=== PATIENT | male | born 1950 | race Two or more races ===

== ENCOUNTER 2018-09-12 10:36 | Inpatient (IN) | payer MEDICARE, OTHER ==
[~2018-09-12] VITALS: Ht 170.2 cm; Wt 45.4 kg
[~2018-09-12 10:36] MED LIST: BACLOFEN10 MG ORAL; CATAPRES0.1 MG ORAL; CEFAZOLIN2 GM/50 ML IV; CLARITIN10 M2 ORAL; CLONIDINE HCL0.1 MG PO; COLACE100 MG ORAL; COLAZAL750 MG ORAL; CRANBERRY450 M4 PO; DIURIL25 MG ORAL; DOCUSATE SODIU100 MG ORAL; FERROUS SULFAT325 MG ORAL; FLORANEX TABLE1 EAC1 PO; GLUCOPHAGE1000 MG ORAL; HEPARIN SO5000 UNIT2 SUBQ; HEPARIN2000 UNIT/ IV; LISINOPRIL20 MG ORAL; MAALOX ADVANCE770 ML PO; METFORMIN HCL500 M1 ORAL; METFORMIN HCL5000 GM MC; METFORMIN HCL850 M1 ORAL; NORCO 5-325 TA1 EAC1 ORAL; SENNA8.6 M3 PO; TERAZOSIN HCL1 MG ORAL; TRAMADOL HCL50 MG ORAL; TYLENOL EXTRA500 MG ORAL; VERAPAMIL ER240 M2 PO
--- NOTE | 2018-09-12 10:48 | NUR ---
ED Nurse Note: Pt brought in by ambulance from [facility] due to decreased appetite x 2 days. Pt is sluggish. Noted 2 wounds on right buttocks with redness surrounding it. Also noted foul odor and some draiange surrounding suprapubic catheter. Pt is AAO x2, non ambulatory with bilateral lower leg contractures.
[2018-09-12] MEDS ORDERED: LISINOPRIL10 MG ORAL (11:10)
[2018-09-12] MEDS ORDERED: THERA-M TABLET1 EACH PO (11:10)
[2018-09-12] MEDS ORDERED: ATORVASTATIN CA10 MG ORAL (11:10)
[2018-09-12] MEDS ORDERED: FLEET ENEMA133 ML RECTAL (11:10)
[2018-09-12] MEDS ORDERED: DULCOLAX10 MG RC (11:10)
--- NOTE | 2018-09-12 11:13 | Emergency Room Report ---
History of Present Illness General Chief Complaint: Altered Level of Consciousness Source: Patient, Medical Record, EMS Present Illness HPI Patient presents with lack of appetite and not eating. 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 He has a Rai catheter. He states he has left lower quadrant abdominal pain. He moved his bowels yesterday. He states he is not hungry at this time. The pain is rated 8/10 nonradiating. He states he is thirsty. BPH and urinary retention with chronic rai. No fevers, cough, NV, chest pain, cough, headache, joint pain. Chronic weakness and bed bound. Mytonic muscular dystrophy. Allergies: Coded Allergies: PEANUT (Verified Allergy, Unknown, 09/12/18) Patient History Past Medical History: see triage record Social History: Denies: smoking Social [facility] Nursing Documentation: PMH: Agreed; PSxH: Agreed Nursing Documentation-PMH Hx Cardiac Problems: No - BPH Hx Hypertension: Yes Hx Pacemaker: No - bph,urinary retention, gerd, Hx COPD: Yes Hx Diabetes: Yes Hx Cancer: No Hx Gastrointestinal Problems: Yes - GERD, Anemia Hx Neurological Problems: No Review of Systems All Other Systems: negative except mentioned in HPI Physical Exam Vital Signs Date Time Temp Pulse Resp B/P (MAP) Pulse Ox O2 Delivery O2 Flow Rate FiO2 09/12/18 10:38 97.7 89 16 126/77 91 Room Air Sp02 EP Interpretation: reviewed, abnormal - interpreted as low by me General Appearance: no apparent distress, thin, Chronically Ill Eyes: bilateral eye other - Arcus bilaterally ENT: dry mucus membranes Neck: supple Cardiovascular #1: regular rate, rhythm, no edema Cardiovascular #2: 2+ radial (R) Gastrointestinal: soft, no guarding, no rebound, tenderness - LLQ , decreased bowel sounds, scaphoid Genitourinary: no CVA tenderness, other - rai Musculoskeletal: other - atrophy bilateral legs with weakness and some contractures Neurologic: responsive, sensory intact, motor weakness - LE, oriented - X2 Psychiatric: depressed affect Reflexes: 1+ knee (R), 1+ knee (L) Skin: other - poor turgor, bilateral sacral decubiti - Stage 3 Medical Decision Making Diagnostic Impression: Primary Impression: UTI (urinary tract infection) Qualified Codes: T83.511A - Infection and inflammatory reaction due to indwelling urethral catheter, initial encounter; N39.0 - Urinary tract infection , site not specified Additional Impressions: Failure to thrive Qualified Codes: R62.7 - Adult failure to thrive Muscular dystrophy Fecal impaction Renal failure (ARF), acute on chronic Qualified Codes: N17.9 - Acute kidney failure, unspecified; N18.3 - Chronic kidney disease, stage 3 (moderate) ER Course Patient presents with lower abdominal pain and lack of appetite. Differential includes diverticulitis, impaction, urinary tract infection, renal stone, pyelonephritis amongst others. Evaluation will be with EKG, chest x-ray abdominal film and labs including lactic acid. Patient will receive IV hydration. EKG without injury. CXR no infiltrate. Labs with leukocytosis, ARF, pyuria. Abd with impaction. Antibiotics begun. Discussed with Dr. Oakley. Admit med. Dr. Oakley here and examined patient. Laboratory Tests Test 09/12/18 11:00 09/12/18 11:05 White Blood Count 15.1 K/UL (4.8-10.8) H Red Blood Count 4.38 M/UL (4.70-6.10) L Hemoglobin 12.4 G/DL (14.2-18.0) L Hematocrit 38.2 % (42.0-52.0) L Mean Corpuscular Volume 87 FL (80-99) Mean Corpuscular Hemoglobin 28.2 PG (27.0-31.0) Mean Corpuscular Hemoglobin Concent 32.4 G/DL (32.0-36.0) Red Cell Distribution Width 14.8 % (11.6-14.8) Platelet Count 637 K/UL (150-450) H Mean Platelet Volume 4.9 FL (6.5-10.1) L Neutrophils (%) (Auto) % (45.0-75.0) Lymphocytes (%) (Auto) % (20.0-45.0) Monocytes (%) (Auto) % (1.0-10.0) Eosinophils (%) (Auto) % (0.0-3.0) Basophils (%) (Auto) % (0.0-2.0) Differential Total Cells Counted 100 Neutrophils % (Manual) 85 % (45-75) H Lymphocytes % (Manual) 13 % (20-45) L Monocytes % (Manual) 2 % (1-10) Eosinophils % (Manual) 0 % (0-3) Basophils % (Manual) 0 % (0-2) Band Neutrophils 0 % (0-8) Platelet Estimate Increased H Platelet Morphology Normal Hypochromasia 1+ Anisocytosis 1+ Prothrombin Time 11.1 SEC (9.30-11.50) Prothrombin Time INR 1.1 (0.9-1.1) PTT 27 SEC (23-33) Sodium Level 144 MMOL/L (136-145) Potassium Level 5.1 MMOL/L (3.5-5.1) Chloride Level 106 MMOL/L (98-107) Carbon Dioxide Level 16 MMOL/L (21-32) L Anion Gap 22 mmol/L (5-15) H Blood Urea Nitrogen 134 mg/dL (7-18) H Creatinine 3.4 MG/DL (0.55-1.30) H Estimate Glomerular Filtration Rate 18.1 mL/min (>60) Glucose Level 117 MG/DL (74-106) H Lactic Acid Level 1.10 mmol/L (0.4-2.0) Calcium Level 10.3 MG/DL (8.5-10.1) H Phosphorus Level 5.9 MG/DL (2.5-4.9) H Magnesium Level 2.7 MG/DL (1.8-2.4) H Total Bilirubin 0.3 MG/DL (0.2-1.0) Aspartate Amino Transferase (AST) 27 U/L (15-37) Alanine Aminotransferase (ALT) 45 U/L (12-78) Alkaline Phosphatase 88 U/L (46-116) Total Creatine Kinase 356 U/L (26-308) H Troponin I 0.004 ng/mL (0.000-0.056) Pro-B-Type Natriuretic Peptide 244 pg/mL (0-125) H Total Protein 9.3 G/DL (6.4-8.2) H Albumin 4.3 G/DL (3.4-5.0) Globulin 5.0 g/dL Albumin/Globulin Ratio 0.9 (1.0-2.7) L Lipase 141 U/L (73-393) Urine Color Pale yellow Urine Appearance Cloudy Urine pH 5 (4.5-8.0) Urine Specific Center 1.020 (1.005-1.035) Urine Protein 3+ (NEGATIVE) H Urine Glucose (UA) Negative (NEGATIVE) Urine Ketones 1+ (NEGATIVE) H Urine Blood 5+ (NEGATIVE) H Urine Nitrite Positive (NEGATIVE) H Urine Bilirubin Negative (NEGATIVE) Urine Urobilinogen Normal MG/DL (0.0-1.0) Urine Leukocyte Esterase 3+ (NEGATIVE) H Urine RBC 30-40 /HPF (0 - 0) H Urine WBC 60-80 /HPF (0 - 0) H Urine Squamous Epithelial Cells Occasional /LPF Urine Bacteria Many /HPF (NONE) H EKG Diagnostic Results Rate: normal Rhythm: NSR ST Segments: no acute changes - RBBB Rhythm Strip Diag. Results EP Interpretation: yes Rhythm: NSR, no PVC's, no ectopy Chest X-Ray Diagnostic Results Chest X-Ray Diagnostic Results : Chest X-Ray Ordered: Yes # of Views/Limited/Complete: 1 View Indication: Other EP Interpretation: Yes Interpretation: no consolidation, no effusion, no pneumothorax Impression: No acute disease Electronically Signed by: Electronically signed by Dane Patel MD Other X-Ray Diagnostic Results Other X-Ray Diagnostic Results : X-Ray ordered: abd # of Views/Limited Vs Complete: 2 View Indication: Pain EP Interpretation: Yes Interpretation: nonspecific bowel gas, no sbo, other - impaction Impression: Other Electronically Signed by: Electronically signed by Dane Patel MD Last Vital Signs Date Time Temp Pulse Resp B/P (MAP) Pulse Ox O2 Delivery O2 Flow Rate FiO2 09/12/18 20:00 99.4 92 17 137/79 (98) 96 09/12/18 16:31 Room Air Status: improved Disposition: ADMITTED INPATIENT Condition: Serious Dane Patel MD Sep 12, 2018 11:13
--- NOTE | 2018-09-12 11:16 | NUR ---
ED Nurse Note: Blood and urine sent.
[2018-09-12 11:18] LABS: HEMATOCRIT 38.2 % (42.0-52.0); HEMOGLOBIN 12.4 G/DL (14.2-18.0); MEAN CORPUSCULAR VOLUME 87 FL (80-99); PLATELET COUNT 637 K/UL (150-450); RED BLOOD COUNT 4.38 M/UL (4.70-6.10); RED CELL DISTRIBUTION WIDTH 14.8 % (11.6-14.8); WHITE BLOOD COUNT 15.1 K/UL (4.8-10.8)
[2018-09-12 11:25] LABS: APPEARANCE,URINE CLOUDY; BILIRUBIN, URINE NEGATIVE (NEGATIVE); COLOR,URINE PALE YELLOW; GLUCOSE, URINE (UA) NEGATIVE (NEGATIVE); KETONES,URINE 1+ (NEGATIVE); LEUKOCYTE ESTERASE ,URINE 3+ (NEGATIVE); NITRITE,URINE POSITIVE (NEGATIVE); PH,URINE 5 (4.5-8.0); PROTEIN,URINE 3+ (NEGATIVE); UROBILINOGEN,URINE NORMAL MG/DL (0.0-1.0)
[2018-09-12 11:31] VITALS: BP 135/71
[2018-09-12 11:36] LABS: INR 1.1 (0.9-1.1)
[2018-09-12 11:38] LABS: ANION GAP 22 mmol/L (5-15); BLOOD UREA NITROGEN 134 mg/dL (7-18); CALCIUM 10.3 MG/DL (8.5-10.1); CARBON DIOXIDE 16 MMOL/L (21-32); CHLORIDE 106 MMOL/L (98-107); CREATININE 3.4 MG/DL (0.55-1.30); POTASSIUM 5.1 MMOL/L (3.5-5.1); SODIUM 144 MMOL/L (136-145)
[2018-09-12 11:47] LABS: ALANINE AMINOTRANSFERASE 45 U/L (12-78); ALBUMIN 4.3 G/DL (3.4-5.0); ALBUMIN/GLOBULIN RATIO 0.9 (1.0-2.7); ALKALINE PHOSPHATASE 88 U/L (46-116); ASPARTATE AMINO TRANSFERASE 27 U/L (15-37); BILIRUBIN,TOTAL 0.3 MG/DL (0.2-1.0); CREATINE KINASE 356 U/L (26-308); PHOSPHORUS 5.9 MG/DL (2.5-4.9)
[2018-09-12] MEDS ORDERED: cefTRIAXone 1 GM in NS 55 ML IVPB ONE (12:15)
--- NOTE | 2018-09-12 12:42 | Diagnostic Imaging Report ---
EXAM: XR Chest, 1 View CLINICAL HISTORY: ALOC TECHNIQUE: Frontal view of the chest. COMPARISON: No relevant prior studies available. FINDINGS: Lungs: No consolidation. Pleural space: Unremarkable. No pneumothorax. Heart: Unremarkable. No cardiomegaly. Mediastinum: Unremarkable. Bones/joints: No acute fracture. IMPRESSION: No acute cardiopulmonary disease.
--- NOTE | 2018-09-12 12:59 | Diagnostic Imaging Report ---
EXAM: XR Abdomen, 1 View CLINICAL HISTORY: ABD PAIN TECHNIQUE: Frontal supine view of the abdomen/pelvis. COMPARISON: No relevant prior studies available. FINDINGS: Gastrointestinal tract: Paucity of bowel gas. Large amount of stool throughout the colon. Bones/joints: Degenerative changes of the right hip IMPRESSION: Paucity of bowel gas. Large amount of stool throughout the colon.
--- NOTE | 2018-09-12 14:10 | NUR ---
ED Nurse Note: Tried to give report to Med surg unit but receiving RN unable to receive report at this time Will call again.
--- NOTE | 2018-09-12 14:42 | NUR ---
ED Nurse Note: Report given to Marisela COY of Med surg unit.
[2018-09-12 14:43] VITALS: BP 142/94
--- NOTE | 2018-09-12 14:50 | NUR ---
ED Nurse Note: Pt transferred to Med Surg unit via jeffrey assisted by CEZAR Alcaraz. All belongings sent.
[2018-09-12 15:30] VITALS: BP 115/85
[2018-09-12] MEDS ORDERED: traMADol 50mg tab ORAL PRN (16:00)
[2018-09-12] MEDS ORDERED: Acetaminophen 500mg (ES) tab ORAL PRN (16:00)
--- NOTE | 2018-09-12 16:00 | Consultation ---
Consult Note Consult Note asked to eval for renal failure Chief Complaint: Altered Level of Consciousness HPI Patient presents with lack of appetite and not eating. 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 He has a Webster catheter. He states he has left lower quadrant abdominal pain. He moved his bowels yesterday. He states he is not hungry at this time. The pain is rated 8/10 nonradiating. Mytonic muscular dystrophy. Coded Allergies: PEANUT (Verified Allergy, Unknown, 09/12/18) - BPH - HTN - bph,urinary retention, gerd, -COPD: Yes -Diabetes: Yes -Gastrointestinal Problems: Yes - GERD, Anemia . Assessment/Plan Acute Renal failure On DIURETICS_ METFORMIN _ ZESTRIL ? CKD underlying Dehydration Supra pubic cath UTI Hydrate monitor renal parameters Antibiotics Avoid Nephrotoxics Per orders Jesse Moya MD Sep 12, 2018 16:00
[2018-09-12] MEDS ORDERED: HydrALAZINE 25mg tab ORAL PRN (16:15)
[2018-09-12] MEDS ORDERED: CefTAZidime 1 GM in D5W 55 ML IV ONE (17:00)
[2018-09-12] MEDS ORDERED: Vancomycin 1 GM in D5W 275 ML IVPB ONE (17:30)
[2018-09-12] MEDS: Docusate 100mg cap ORAL SCH (18:08)
[2018-09-12] MEDS: Lactulose 20gm/30ml UDC ORAL SCH ×2 (18:08→20:27)
--- NOTE | 2018-09-12 18:46 | NUR ---
NURSE NOTES: Received pt from ZBIGNIEW Dolan at 1500. pt is alert and orient x4. pt is in RA . No SOB or acute respiratory distress noted. pt has 4 wounds on R buttock, took picture and treatment done. pt has contracture bilateral lower extremities. pt has suprapubic cath in place is running well. Urin is cloudy and cath has drainage. pt will be NPO from mid night due to ABD . pt has intact iv access LAC 20g is running well. Dr OLMEDO and Dr OROZCO are aware about pt's condition. all orders noted and carried out. All needs attended, bed is locked and is in the lowest position. call light within easy reach. will continue to monitor.
--- NOTE | 2018-09-12 19:39 | NUR ---
HAND-OFF: Report given to ZBIGNIEW WALKER.
[2018-09-12 20:00] VITALS: BP 137/79
[2018-09-12] MEDS: Heparin 5000 units/ml inj SUBQ SCH (20:28)
[2018-09-13] VITALS: BP 130/80
--- NOTE | 2018-09-13 03:15 | History and Physical Report ---
DATE OF ADMISSION: 09/12/2018 NOTE: POOR AUDIO This is one of several admissions to [facility] of this 68-year-old patient because of intractable abdominal pain, intestinal obstruction, and interstitial cystitis. HISTORY OF PRESENT ILLNESS: The patient is a resident of an extended care facility where he has been in relatively stable condition over the last two months. Two months ago he was admitted for a similar condition in this hospital mainly because of lower abdominal pain. The patient explained that the reason for his abdominal pain is that because he took too many Davis. The patient needed to buy Davis to be used over the last month. In the last 24 hours, he took more than 10 Davis 5/325. PAST MEDICAL HISTORY: Denied any surgical . Medically, he has intermittent abdominal pain. He is on , which lasts several weeks . This pain is not associated with fever, nausea, vomiting, or diarrhea. . Other past medical history, for the last 9 years. FAMILY HISTORY: Father at age of 61 from an acute [place]. Mother at the age of 82 with acute myocardial infarction as well. He has 1 sister in good health. He has 1 brother who is in the hospital for . The patient who is sick as well. He has 1 daughter in good health. SOCIAL HISTORY: He is . He was born in [place]. He . Prior to the appearance of his , he worked for the [employer]. HABITS: The patient discontinued smoking in 1963. He discontinued drinking years ago and he denies the use of illicit drugs. REVIEW OF SYSTEMS: CARDIOVASCULAR: The patient denied any chest pain, shortness of breath, palpitations, or dizziness. PULMONARY: The patient denied any cough, wheezing, or expectoration. GASTROINTESTINAL: His appetite is moderate. His weight is stable. He has no dysphagia or dyspepsia. No bowel movement disorder. GENITOURINARY: The patient denies any dysuria. movement disorder in the last 48 hours. The patient denies any dysuria, frequency, incontinence, and nocturia. MUSCULOSKELETAL: The patient denies any pain, swelling, stiffness, cold extremities, photosensitivity, dry eyes, although the patient admits to given explanation that joint pain or lower back pain. RECTAL: Pelvic pain. 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 PHYSICAL EXAMINATION: VITAL SIGNS: His blood pressure is 142/84, his pulse is 76, respirations are 18, and temperature 97.9. HEENT: Eyes were normal. Pupils were round, equal, and reactive to light. Sclerae was white. Conjunctiva was pink. Extraocular movements are normal. Temporal arteries were palpable bilaterally. There was some bilateral temporal wasting. Visual montez to confrontation was normal. Neglect sign was negative. ENT, mucous membranes were not dehydrated. Auditory canals were clear and tympanic membranes could not be visualized. Nasal cavity was not congested. Nasal septum was intact. Soft palate was free of ulcerations. Pharynx was clear. No tonsillar hypertrophy. Uvula cameron to phonation. Tongue was moist, midline, and normally papillated. NECK: Supple. There was no goiter. No mass. No lymphadenopathy. There was no JVD. No bruits. Carotid upstroke was 2+. LUNGS: Clear. HEART: PMI was at the fifth left intercostal space in midclavicular line. There was normal S1 and normal S2. There was no murmur. No arrhythmia. No S3. No S4. No pericardial rub. ABDOMEN: Soft. Nontender without organomegaly. There were no masses palpable. Normal bowel sounds without bruits. There was no guarding. No rebound tenderness. No ascites. No hernia. No CVA tenderness. Liver span was 8 cm, smooth and nontender. EXTREMITIES: No cyanosis, no clubbing, and no edema. Extremities were warm. NEUROLOGICAL: Reflexes of biceps, triceps, and brachioradialis were symmetric and equal. Patellar retinaculum was present. Plantars were in flexion. Cranial nerves from II through XII were symmetric and equal. Gait is within normal limits. Sltoph-fc-[id number] and rapid alternating movements and Romberg sign were not performed by the patient. There was no tremor. No nystagmus. No extrapyramidal rigidity. Sensory exam to pinprick, cotton touch, and to position are grossly normal. Motor strength was 5/5 against resistance in upper extremity and declined by the patient in the lower extremity. LABORATORY DATA: EKG showed no acute cardiopulmonary disease. His KUB shows large amount of stool throughout the colon. His hemoglobin is 12.4, hematocrit 38.2 with MCV of 87, WBC of 15.1, and platelets is 637,000. His BUN is 134 and creatinine is 3.4. Sodium is 144, potassium 5.1, chloride 106, and CO2 is 16. Calcium was 10.3 and total protein 5.9. Albumin is . IMPRESSION: The patient has severe abdominal pain, not exactly explained by the intestinal impaction. The patient has chronic renal failure. Nephrology consult was called to assist in the management of this case. CT scan of the abdomen and pelvis without contrast will be requested and a compressive treatment for his intestinal impaction will be requested. Repeat laboratory tests will be done in the morning. Oni Oakley M.D. DR: MAR JOB#: [id number] CC:
[2018-09-13 04:00] VITALS: BP 133/78
[2018-09-13 07:32] LABS: HEMATOCRIT 37.1 % (42.0-52.0); HEMOGLOBIN 11.8 G/DL (14.2-18.0); MEAN CORPUSCULAR VOLUME 87 FL (80-99); PLATELET COUNT 613 K/UL (150-450); RED BLOOD COUNT 4.26 M/UL (4.70-6.10); RED CELL DISTRIBUTION WIDTH 14.7 % (11.6-14.8); WHITE BLOOD COUNT 18.1 K/UL (4.8-10.8)
--- NOTE | 2018-09-13 07:37 | NUR ---
HAND-OFF: Report given to ZBIGNIEW Freeman.
[2018-09-13 07:38] LABS: ALANINE AMINOTRANSFERASE 70 U/L (12-78); ALBUMIN 4.2 G/DL (3.4-5.0); ALBUMIN/GLOBULIN RATIO 0.9 (1.0-2.7); ALKALINE PHOSPHATASE 90 U/L (46-116); ANION GAP 17 mmol/L (5-15); ASPARTATE AMINO TRANSFERASE 60 U/L (15-37); BILIRUBIN,TOTAL 0.4 MG/DL (0.2-1.0); BLOOD UREA NITROGEN 104 mg/dL (7-18); CARBON DIOXIDE 20 MMOL/L (21-32); CHLORIDE 112 MMOL/L (98-107); CHOLESTEROL 151 MG/DL (< 200); CREATININE 1.9 MG/DL (0.55-1.30); HDL CHOLESTEROL 50 MG/DL (40-60); POTASSIUM 3.7 MMOL/L (3.5-5.1); SODIUM 149 MMOL/L (136-145); TRIGLYCERIDES 107 MG/DL (30-150)
--- NOTE | 2018-09-13 07:47 | NUR ---
NURSE NOTES: received pt in NAD, in bed awake, NPO after midnight for abdominal US. Received IVF through LFA, no sign of infiltration noted. Bed is locked at the lowest position possible, call light within easy reach, siderails up x3. Webster catheter in place, anchor securing F/C tube in place. Will continue to monitor patient and follow up with the POC.
[2018-09-13 07:55] LABS: CREATINE KINASE 580 U/L (26-308); GAMMA GLUTAMYL TRANSPEPTIDASE 56 U/L (5-85); PHOSPHORUS 3.7 MG/DL (2.5-4.9)
[2018-09-13 08:00] VITALS: BP 153/82
[2018-09-13] MEDS: Heparin 5000 units/ml inj SUBQ SCH ×2 (08:35→20:39)
[2018-09-13] MEDS: Lactulose 20gm/30ml UDC ORAL SCH (09:00)
[2018-09-13] MEDS: Docusate 100mg cap ORAL SCH ×3 (09:00→18:00)
[2018-09-13] MEDS ORDERED: Cefepime HCl 1 GM in D5W 55 ML IVPB ONE (11:30)
--- NOTE | 2018-09-13 11:30 | NUR ---
NURSE NOTES: Abdominal US won't be able to be done today, as per US department. Resumed diet for pt, will endorse to NOC nurse to be NPO after MN tonight.
[2018-09-13 12:00] VITALS: BP 131/78
--- NOTE | 2018-09-13 13:17 | NUR ---
RD ASSESSMENT & RECOMMENDATIONS SEE CARE ACTIVITY FOR COMPLETE ASSESSMENT DAILY ESTIMATED NEEDS: Needs based on Underweight, renal, pre-dm/ DM, 46kg 30-35 kcals/kg 5657-4354 total kcals 1-1.5 g protein/kg 46-69 g total protein 25-30 mL/kg 8920-6467 total fluid mLs NUTRITION DIAGNOSIS: 1) Increased kcal and pro needs r/t underweight status as evidenced by pt is 63% of [place] Body Weight w/ generalized wasting. 2) Altered nutrition related lab values r/t renal failure as evidenced by pt adm w/ elev BUN (134) elev creat (3.4), elev K, phos, on adm, now trending to WNL. CURRENT DIET: Renal PO DIET RECOMMENDATIONS: LOW NA DIET (texture as tolerated) ADDITIONAL RECOMMENDATIONS: 1) add Glucerna TID w/ meals (Add NEPRO while on Renal diet) 2) Obtain a CALIBRATED bed scale wt for accurate CBW 3) F/up w/ WC eval 4) Monitor BG/ accuchecks w/ SSI
--- NOTE | 2018-09-13 14:59 | Nephrology Progress Note ---
Assessment/Plan Problem List: (1) Renal failure (ARF), acute on chronic (2) UTI (urinary tract infection) (3) Failure to thrive (4) Severe malnutrition Assessment Acute Renal failure - On DIURETICS_ METFORMIN _ ZESTRIL prior to admission ? CKD underlying Dehydration Supra pubic cath UTI Plan Hydrate - D5W monitor renal parameters Antibiotics Avoid Nephrotoxics Cefepime IV Per orders Subjective ROS Limited/Unobtainable: No Constitutional: Reports: malaise, weakness Objective Objective Last 24 Hour Vital Signs Date Time Temp Pulse Resp B/P (MAP) Pulse Ox O2 Delivery O2 Flow Rate FiO2 09/13/18 12:00 97.6 77 18 131/78 (95) 98 09/13/18 09:00 Room Air 09/13/18 08:32 76 153/82 09/13/18 08:00 97.2 76 17 153/82 (105) 97 09/13/18 04:00 97.8 85 19 133/78 (96) 98 09/13/18 00:00 97.8 106 19 130/80 (97) 98 09/12/18 21:00 Room Air 09/12/18 20:00 99.4 92 17 137/79 (98) 96 09/12/18 17:08 90 115/85 09/12/18 16:31 Room Air 09/12/18 15:30 97.9 90 19 115/85 (95) 97 09/12/18 14:52 97.9 76 18 142/94 99 Room Air Intake and Output 09/12/18 09/13/18 19:00 07:00 Intake Total 2043.708 ml 1613.708 ml Output Total 300 ml 3850 ml Balance 1743.708 ml -2236.292 ml Intake Oral 480 ml IV Total 1843.708 ml 933.708 ml Other 200 ml 200 ml Output Urine Total 300 ml 3850 ml # Voids 1 1 # Bowel Movements 1 Laboratory Tests 09/13/18 06:15: White Blood Count 18.1H, Red Blood Count 4.26L, Hemoglobin 11.8L, Hematocrit 37.1L, Mean Corpuscular Volume 87, Mean Corpuscular Hemoglobin 27.7, Mean Corpuscular Hemoglobin Concent 31.8L, Red Cell Distribution Width 14.7, Platelet Count 613H, Mean Platelet Volume 4.9L, Neutrophils (%) (Auto) , Lymphocytes (%) (Auto) , Monocytes (%) (Auto) , Eosinophils (%) (Auto) , Basophils (%) (Auto) , Differential Total Cells Counted 100, Neutrophils % ( Manual) 84H, Lymphocytes % (Manual) 12L, Monocytes % (Manual) 4, Eosinophils % ( Manual) 0, Basophils % (Manual) 0, Band Neutrophils 0, Platelet Estimate IncreasedH, Platelet Morphology Normal, Anisocytosis 1+, Sodium Level 149H, Potassium Level 3.7, Chloride Level 112H, Carbon Dioxide Level 20L, Anion Gap 17H, Blood Urea Nitrogen 104H, Creatinine 1.9H, Estimat Glomerular Filtration Rate 35.4, Glucose Level 159H, Hemoglobin A1c 6.2H, Uric Acid 13.5H, Calcium Level 10.0, Phosphorus Level 3.7, Magnesium Level 2.3, Total Bilirubin 0.4, Gamma Glutamyl Transpeptidase 56, Aspartate Amino Transf (AST/SGOT) 60H, Alanine Aminotransferase (ALT/SGPT) 70, Alkaline Phosphatase 90, Ammonia 11, Total Creatine Kinase 580H, Troponin I 0.023, Pro-B-Type Natriuretic Peptide 541H, Total Protein 9.0H, Albumin 4.2, Globulin 4.8, Albumin/Globulin Ratio 0.9L , Triglycerides Level 107, Cholesterol Level 151, LDL Cholesterol 81, HDL Cholesterol 50, Cholesterol/HDL Ratio 3.0L, Vitamin B12 Level 1295H, Folate 43.7 , Thyroid Stimulating Hormone (TSH) 0.142L, Random Vancomycin Level 14.0 Height (Feet): 5 Height (Inches): 7.00 Weight (Pounds): 100 General Appearance: no apparent distress, lethargic Cardiovascular: normal rate Abdomen: soft Genitourinary/Rectal: other - supra pubic cath eJsse Moya MD Sep 13, 2018 14:59
[2018-09-13 16:00] VITALS: BP 117/71
--- NOTE | 2018-09-13 17:43 | NUR ---
CASE MANAGEMENT:INITIAL REVIEW 68 YO M SIRI FROM [facility] CC: ALOC PMHx: BPH. URINARY RETENTION. GERD. COPD. DM. SI:UTI. FTT. T 97.7 HR 89 RR 16 B/P 126/77 SATS 91% ON RA WBC 15.1 CO2 16 AGAP 22 BUN 134 CR 3.4 GLU 117 CA 10.3 PHOS 5.9 MG 2.7 TOTAL CK 356 BNP 244 IS: NS BOLUS X2 PATIENT ADMITTED TO MED/SURG 09/12/2018 @ 8289 DCP: PATIENT TO BE DISCHARGED TO SNF ONCE MEDICALLY CLEARED. PLAN OF CARE: WOUND CARE US ABD Addendum: 09/13/18 at 1906 by Fabienne Sánchez CM INTERQUAL MET
--- NOTE | 2018-09-13 19:30 | NUR ---
NURSE NOTES: Received a report from ZBIGNIEW Freeman. Pt is in stable condition. AAOX4. Able to make needs known. No respiratory distress noted. On room air. IV access is patent and intact. Bed in lowest position. Bed alarm is on. Call light within reach. Will continue to monitor.
--- NOTE | 2018-09-13 19:53 | NUR ---
HAND-OFF: Report given to ZBIGNIEW Ventura.
[2018-09-13 20:00] VITALS: BP 135/61
[2018-09-14] VITALS: BP 139/69
[2018-09-14 04:00] VITALS: BP 101/69
[2018-09-14 06:57] LABS: BASOPHILS % (AUTO) 0.9 % (0.0-2.0); EOSINOPHILS % (AUTO) 1.9 % (0.0-3.0); HEMATOCRIT 35.6 % (42.0-52.0); HEMOGLOBIN 11.6 G/DL (14.2-18.0); LYMPHOCYTES % (AUTO) 23.8 % (20.0-45.0); MEAN CORPUSCULAR VOLUME 86 FL (80-99); MONOCYTES % (AUTO) 6.6 % (1.0-10.0); NEUTROPHILS % (AUTO) 66.8 % (45.0-75.0); PLATELET COUNT 553 K/UL (150-450); RED BLOOD COUNT 4.16 M/UL (4.70-6.10); RED CELL DISTRIBUTION WIDTH 14.2 % (11.6-14.8); WHITE BLOOD COUNT 11.9 K/UL (4.8-10.8)
--- NOTE | 2018-09-14 07:10 | NUR ---
HAND-OFF: Report given to ZBIGNIEW Freeman.
[2018-09-14 07:32] LABS: ALANINE AMINOTRANSFERASE 119 U/L (12-78); ALBUMIN 3.8 G/DL (3.4-5.0); ALBUMIN/GLOBULIN RATIO 0.8 (1.0-2.7); ALKALINE PHOSPHATASE 83 U/L (46-116); ANION GAP 14 mmol/L (5-15); ASPARTATE AMINO TRANSFERASE 114 U/L (15-37); BILIRUBIN,TOTAL 0.5 MG/DL (0.2-1.0); BLOOD UREA NITROGEN 58 mg/dL (7-18); CALCIUM 9.5 MG/DL (8.5-10.1); CARBON DIOXIDE 24 MMOL/L (21-32); CHLORIDE 103 MMOL/L (98-107); CREATINE KINASE 755 U/L (26-308); CREATININE 1.2 MG/DL (0.55-1.30); PHOSPHORUS 1.5 MG/DL (2.5-4.9); POTASSIUM 3.4 MMOL/L (3.5-5.1); SODIUM 141 MMOL/L (136-145)
--- NOTE | 2018-09-14 07:40 | NUR ---
NURSE NOTES: received pt in NAD, in bed awake, NPO after midnight for abdominal US and CT abdomen with contrast. Received IVF through L[facility], no sign of infiltration noted. Contacted [employer] to call company for low pressure mattress, spoken to Chaya. Bed is locked at the lowest position possible, call light within easy reach, siderails up x3. Webster catheter in place, anchor securing F/C tube in place. Will continue to monitor patient and follow up with the POC.
[2018-09-14 08:00] VITALS: BP 115/72
--- NOTE | 2018-09-14 08:06 | NUR ---
NURSE NOTES:WOUND CARE NOTES:Pt presented on admission with resolving pressure injury R ischium with scattered dry eschar (40%) with surrounding pink epithelial borders. (L)3cm x (W)2.3cm. Periwound dry and intact. Stable dry eschar Sacrum with surrounding pink epithelial borders . DTPI noted to R trochanter. Center is fluctuant with surrounding induration.(L)3.5cm x (W)3.8cm.Periwound is dry and intact. Non-blanchable erythema noted to lateral aspect of R foot extending along to lateral 5th metatarsal. Non-blanchable erythema lateral aspect of L foot . Recommendations:Cleanse R ischium with Saline.Apply Therahoney.Apply Cavilon Skin Barrier Periwound. Cover with Optifoam drsg Daily and prn. Apply Triad Paste to Sacrum .Cover with Optifoam drsg.Change every 3 days and prn. Apply Cavilon Skin Barrier to R trochanter. Cover with Optifoam drsg. Change every 7 days and prn. Apply Cavilon Skin Barrier to Lateral Aspects of both feet Daily . Apply Cavilon Skin BArrier to both heels .Copver each heel with Optifoam drsg.Change every 7 days and PRN. APM/LA mattress overlay. Reposition at least every 2hours or as tolerated. Off-load heels with pillow.
[2018-09-14] MEDS: Docusate 100mg cap ORAL SCH ×4 (09:00→17:11)
[2018-09-14] MEDS ORDERED: Potassium Phosphate 30 MM in NS 275 ML IV ONE (11:00)
--- NOTE | 2018-09-14 11:00 | Progress Note ---
DATE: 09/13/2018 SUBJECTIVE: The patient is awake, alert, afebrile, hemodynamically stable than yesterday. PHYSICAL EXAMINATION: VITAL SIGNS: Blood pressure , his pulse is 69, respirations are 18, and temperature 97.8. HEENT: Eyes were normal. ENT, mucous membranes were moist and intact. NECK: Supple with no JVD without lymph nodes. Tracheostomy site is clean. LUNGS: Clear without rhonchi, rales, or wheezing. Secretions are small, thin, and [place]. HEART: Normal sounds with regular heart beats. There is no S3, S4, or pericardial rub. ABDOMEN: Soft and nontender with normal bowel sounds. EXTREMITIES: Warm without cyanosis, clubbing, or edema. IMPRESSION: The patient with pelvic pain, nearly completely resolved. He has been assessed specialist. Repeat laboratory tests will be done in the a.m. Imaging study will be done in the a.m. as well. Oni Oakley M.D. DR: JAM JOB#: [id number] CC:
[2018-09-14] MEDS: Cefepime HCl 1 GM in D5W 55 ML IVPB SCH (11:07)
[2018-09-14] MEDS: Allopurinol 100mg Tab ORAL SCH (11:10)
[2018-09-14] MEDS: Heparin 5000 units/ml inj SUBQ SCH ×2 (11:13→21:11)
--- NOTE | 2018-09-14 11:15 | NUR ---
NURSE NOTES: placed P200 air mattress, brought by Radario, for prevention of wound deterioration, and wound healing.
--- NOTE | 2018-09-14 11:18 | Nephrology Progress Note ---
Assessment/Plan Problem List: (1) Renal failure (ARF), acute on chronic (2) UTI (urinary tract infection) (3) Failure to thrive (4) Severe malnutrition Assessment Acute Renal failure - On DIURETICS_ METFORMIN _ ZESTRIL prior to admission ? CKD underlying Dehydration Supra pubic cath UTI Plan Hydrate - D5W k and Phos and Mag supplement as needed monitor renal parameters Antibiotics Avoid Nephrotoxics Cefepime IV Per orders diet to regular easy chew Subjective ROS Limited/Unobtainable: No Constitutional: Reports: malaise, weakness Objective Objective Last 24 Hour Vital Signs Date Time Temp Pulse Resp B/P (MAP) Pulse Ox O2 Delivery O2 Flow Rate FiO2 09/14/18 08:58 72 115/72 09/14/18 08:00 97.8 72 19 115/72 (86) 99 09/14/18 04:00 98.7 75 17 101/69 (80) 98 09/14/18 00:00 97.5 73 17 139/69 (92) 97 09/13/18 21:00 Room Air 09/13/18 20:00 97.8 69 18 135/61 (85) 99 09/13/18 16:00 97.7 79 18 117/71 (86) 97 09/13/18 12:00 97.6 77 18 131/78 (95) 98 Intake and Output 09/13/18 09/14/18 19:00 07:00 Intake Total 120 ml 1250 ml Output Total 1100 ml 700 ml Balance -980 ml 550 ml Intake Oral 120 ml IV Total 1250 ml Output Urine Total 1100 ml 700 ml Laboratory Tests 09/14/18 05:50: White Blood Count 11.9H, Red Blood Count 4.16L, Hemoglobin 11.6L, Hematocrit 35.6L, Mean Corpuscular Volume 86, Mean Corpuscular Hemoglobin 27.9, Mean Corpuscular Hemoglobin Concent 32.6, Red Cell Distribution Width 14.2, Platelet Count 553H, Mean Platelet Volume 5.0L, Neutrophils (%) (Auto) 66.8, Lymphocytes (%) (Auto) 23.8, Monocytes (%) (Auto) 6.6, Eosinophils (%) (Auto) 1.9, Basophils (%) (Auto) 0.9, Erythrocyte Sedimentation Rate 32H, Sodium Level 141, Potassium Level 3.4L, Chloride Level 103, Carbon Dioxide Level 24, Anion Gap 14 , Blood Urea Nitrogen 58H, Creatinine 1.2, Estimat Glomerular Filtration Rate > 60, Glucose Level 140H, Uric Acid 11.0H, Calcium Level 9.5, Phosphorus Level 1.5L, Magnesium Level 1.8, Total Bilirubin 0.5, Aspartate Amino Transf (AST/SGOT ) 114H, Alanine Aminotransferase (ALT/SGPT) 119H, Alkaline Phosphatase 83, Total Creatine Kinase 755H, Pro-B-Type Natriuretic Peptide 160H, Total Protein 8.4H, Albumin 3.8, Globulin 4.6, Albumin/Globulin Ratio 0.8L Height (Feet): 5 Height (Inches): 7.00 Weight (Pounds): 100 General Appearance: no apparent distress Objective no change Jesse Moya MD Sep 14, 2018 11:18
[2018-09-14 11:29] VITALS: BP 114/75
--- NOTE | 2018-09-14 11:50 | NUR ---
NURSE NOTES: Valentina US tech just finished abd US. Per her request, PO contrast for abd/pelvis CT was on hold, until finishing US. Started offering PO contrast at this time, notified video technician Jaxon.
--- NOTE | 2018-09-14 13:53 | Consultation ---
History of Present Illness General Date patient seen: Sep 14, 2018 Reason for Hospitalization: Altered Level of Consciousness Present Illness HPI This is a 68-year-old male with multiple medical comorbidities who presented with decreased appetite, altered mentation, dehydration, abdominal pain. Patient currently admitted for medical care and management. Upon admission was identified to have multiple wounds. Surgery called to evaluate and assist with care and management. Patient states his abdominal discomfort is intermittent cramping without nausea or emesis. Patient states that he cannot recall recent bowel movement. Patient states he is passing flatus. Patient is unaware of how long he saw the wounds for but states that he is not tended to them. Allergies: Coded Allergies: PEANUT (Verified Allergy, Unknown, 09/12/18) Medication History Scheduled Atorvastatin Calcium* (Lipitor*), 10 MG ORAL BEDTIME, (Reported) Baclofen* (Baclofen*), 10 MG ORAL THREE TIMES A DAY, (Reported) Bisacodyl (Dulcolax), 10 MG RC NEEDED, (Reported) Cefazolin Sodium/Dextrose,Iso (Cefazolin 2 Gm-D5w Bag), 2 GM IV Q8HR, (Reported) Docusate Sodium* (Colace*), 100 MG ORAL DAILY, (Reported) Docusate Sodium* (Docusate Sodium*), 100 MG ORAL TWICE A DAY, (Reported) Ferrous Sulfate* (Ferrous Sulfate*), 325 MG ORAL DAILY, (Reported) Heparin Sod (Porcine) (Heparin Sodium*), 5,000 UNITS SUBQ DAILY, (Reported) Hydrochlorothiazide (Hydrochlorothiazide), 25 MG ORAL DAILY, (Reported) Lisinopril (Lisinopril*), 10 MG ORAL DAILY, (Reported) Lisinopril* (Lisinopril*), 10 MG ORAL DAILY, (Reported) Loratadine (Claritin), 10 MG ORAL DAILY, (Reported) Metformin Hcl* (Metformin Hcl*), 850 MG ORAL DAILY, (Reported) Metformin Hcl* (Metformin Hcl*), 500 MG ORAL DAILY, (Reported) Multivits,Ca,Minerals/Iron/Fa (Thera-M Tablet), 1 EACH PO DAILY, (Reported) Na Phos,M-B/Na Phos,Di-Ba* (Fleet Enema*), 133 ML RECTAL NEEDED, (Reported) Terazosin Hcl* (Hytrin*), 1 MG ORAL BEDTIME, (Reported) Scheduled PRN Acetaminophen* (Tylenol Extra Strength*), 500 MG ORAL Q6H PRN for Mild Pain/ Temp > 100.5, (Reported) Baclofen* (Baclofen*), 15 MG ORAL Q6HR PRN for Muscle Spasm, (Reported) Clonidine Hcl* (Catapres*), 0.1 MG ORAL EVERY 8 HOURS PRN for For High Blood Pressure, (Reported) Hydrocodone Bit/Acetaminophen 5-325* ([place] 5-325 Tablet*), 1 TAB ORAL Q4H PRN for For Pain, (Reported) Loratadine (Claritin), 10 MG ORAL DAILY PRN for Itching, (Reported) Tramadol Hcl* (Ultram*), 50 MG ORAL Q8HR PRN for Pain Scale (3-5), (Reported) Miscellaneous Medications Acidophilus/Bulgaricus (Floranex Tablet), 1 EACH PO, (Reported) Cranberry Fruit Concentrate (Cranberry), 450 MG PO, (Reported) Heparin Sodium,Porcine/Ns/Pf (Heparin), 2,000 UNIT IV, (Reported) Mag Hydrox/Al Hydrox/Simeth (Maalox Advanced Suspension), 770 ML PO, (Reported) Sennosides (Senna), 8.6 MG PO, (Reported) Verapamil Hcl (Verapamil Er), 240 MG PO, (Reported) Patient History Limited by: medical condition History Provided By: Patient, Medical Record, PMD Healthcare decision maker Resuscitation status Full Code Advanced Directive on File No Past Medical/Surgical History Past Medical/Surgical History: (1) Urinary retention (2) Urethral trauma (3) Sepsis (4) Gram positive septicemia (5) Gram-negative bacteremia (6) Hypokalemia (7) Severe malnutrition (8) Failure to thrive (9) Renal failure (ARF), acute on chronic (10) Fecal impaction (11) Muscular dystrophy (12) UTI (urinary tract infection) Review of Systems Review of Symptoms General ROS: no weight loss or fever Psychological ROS: no depression or mood changes, no memory loss Ophthalmic ROS: no visual changes or eye irritation ENT ROS: no nasal congestion, hearing loss, dizziness Allergy and Immunology ROS: no allergic symptoms or urticaria Hematological and Lymphatic ROS: no swollen glands, unusual bleeding or bruising Endocrine ROS: no polyuria, polydipsia, weight changes, temperature intolerance Respiratory ROS: no cough, shortness of breath, or wheezing Cardiovascular ROS: no chest pain or dyspnea on exertion Gastrointestinal ROS: denies abdominal pain, bright red blood in stool. Musculoskeletal ROS: no myalgias or arthralgias Neurological ROS: no TIA or stroke symptoms Dermatological ROS: no new or changing skin lesions, rashes or pruritis Physical Exam Physical Exam General appearance: alert, cooperative, no distress, appears stated age Head: Normocephalic, without obvious abnormality, atraumatic Eyes: conjunctivae/corneas clear. PERRL, EOM's intact. Fundi benign Throat: Lips, mucosa, and tongue normal. Teeth and gums normal Neck: supple, symmetrical, trachea midline, no adenopathy, thyroid: not enlarged, symmetric, no tenderness/mass/nodules, no carotid bruit and no JVD Lungs: clear to auscultation bilaterally Heart: regular rate and rhythm, S1, S2 normal, no murmur, click, rub or gallop Abdomen: soft, non-tender. Bowel sounds normal. No masses, no organomegaly Extremities: extremities normal, atraumatic, no cyanosis or edema Pulses: 2+ and symmetric Skin: Skin color, texture, turgor normal. No rashes or lesions. see wound care photos Neurologic: Grossly normal Last 24 Hour Vital Signs Date Time Temp Pulse Resp B/P (MAP) Pulse Ox O2 Delivery O2 Flow Rate FiO2 09/14/18 11:29 98.4 78 19 114/75 (88) 94 09/14/18 09:00 Room Air 09/14/18 08:58 72 115/72 09/14/18 08:00 97.8 72 19 115/72 (86) 99 09/14/18 04:00 98.7 75 17 101/69 (80) 98 09/14/18 00:00 97.5 73 17 139/69 (92) 97 09/13/18 21:00 Room Air 09/13/18 20:00 97.8 69 18 135/61 (85) 99 09/13/18 16:00 97.7 79 18 117/71 (86) 97 Intake and Output 09/13/18 09/14/18 19:00 07:00 Intake Total 120 ml 1250 ml Output Total 1100 ml 700 ml Balance -980 ml 550 ml Intake Oral 120 ml IV Total 1250 ml Output Urine Total 1100 ml 700 ml Laboratory Tests Test 09/14/18 05:50 White Blood Count 11.9 K/UL (4.8-10.8) H Red Blood Count 4.16 M/UL (4.70-6.10) L Hemoglobin 11.6 G/DL (14.2-18.0) L Hematocrit 35.6 % (42.0-52.0) L Mean Corpuscular Volume 86 FL (80-99) Mean Corpuscular Hemoglobin 27.9 PG (27.0-31.0) Mean Corpuscular Hemoglobin Concent 32.6 G/DL (32.0-36.0) Red Cell Distribution Width 14.2 % (11.6-14.8) Platelet Count 553 K/UL (150-450) H Mean Platelet Volume 5.0 FL (6.5-10.1) L Neutrophils (%) (Auto) 66.8 % (45.0-75.0) Lymphocytes (%) (Auto) 23.8 % (20.0-45.0) Monocytes (%) (Auto) 6.6 % (1.0-10.0) Eosinophils (%) (Auto) 1.9 % (0.0-3.0) Basophils (%) (Auto) 0.9 % (0.0-2.0) Erythrocyte Sedimentation Rate 32 MM/HR (0-20) H Sodium Level 141 MMOL/L (136-145) Potassium Level 3.4 MMOL/L (3.5-5.1) L Chloride Level 103 MMOL/L (98-107) Carbon Dioxide Level 24 MMOL/L (21-32) Anion Gap 14 mmol/L (5-15) Blood Urea Nitrogen 58 mg/dL (7-18) H Creatinine 1.2 MG/DL (0.55-1.30) Estimat Glomerular Filtration Rate > 60 mL/min (>60) Glucose Level 140 MG/DL (74-106) H Uric Acid 11.0 MG/DL (2.6-7.2) H Calcium Level 9.5 MG/DL (8.5-10.1) Phosphorus Level 1.5 MG/DL (2.5-4.9) L Magnesium Level 1.8 MG/DL (1.8-2.4) Total Bilirubin 0.5 MG/DL (0.2-1.0) Aspartate Amino Transf (AST/SGOT) 114 U/L (15-37) H Alanine Aminotransferase (ALT/SGPT) 119 U/L (12-78) H Alkaline Phosphatase 83 U/L (46-116) Total Creatine Kinase 755 U/L (26-308) H Pro-B-Type Natriuretic Peptide 160 pg/mL (0-125) H Total Protein 8.4 G/DL (6.4-8.2) H Albumin 3.8 G/DL (3.4-5.0) Globulin 4.6 g/dL Albumin/Globulin Ratio 0.8 (1.0-2.7) L Height (Feet): 5 Height (Inches): 7.00 Weight (Pounds): 100 Medications Current Medications Medications (Trade) Dose Ordered Sig/Taty Route PRN Reason Start Time Stop Time Status Last Admin Dose Admin Acetaminophen (Tylenol) 500 mg Q6H PRN ORAL Mild Pain/Temp > 100.5 09/12/18 16:00 10/12/18 15:59 09/14/18 11:55 Allopurinol (Zyloprim) 100 mg DAILY ORAL 09/14/18 09:00 10/14/18 08:59 09/14/18 11:10 Amlodipine Besylate (Norvasc) 5 mg DAILY ORAL 09/13/18 09:00 10/13/18 08:59 09/13/18 08:32 Barium Sulfate (Readi-Cat 2) 450 ml NOW PRN ORAL Radiology Procedure 09/14/18 08:45 09/16/18 08:42 Bisacodyl (Dulcolax) 10 mg DAILYPRN PRN RECTAL Constipation 09/12/18 16:00 10/12/18 15:59 Cefepime HCl 1 gm/ Dextrose 55 ml @ 110 mls/hr Q24H IVPB 09/14/18 09:00 09/21/18 08:59 09/14/18 11:07 Dextrose 1,000 ml @ 75 mls/hr [id number] IV 09/14/18 10:00 10/12/18 09:59 09/14/18 11:11 Docusate Sodium (Colace) 100 mg TID ORAL 09/12/18 18:00 10/12/18 17:59 09/12/18 18:08 Heparin Sodium (Porcine) (Heparin 5000 units/ml) 5,000 units EVERY 12 HOURS SUBQ 09/12/18 21:00 10/12/18 20:59 09/14/18 11:13 Hydralazine HCl (Apresoline) 25 mg Q4H PRN ORAL bp over 160 syst 09/12/18 16:15 10/12/18 16:14 Pantoprazole (Protonix) 40 mg EVERY 12 HOURS ORAL 09/14/18 21:00 10/14/18 20:59 Potassium Phosphate 30 mm/ Sodium Chloride 285 ml @ 47.5 mls/hr ONCE ONCE IV 09/14/18 11:00 09/14/18 16:59 09/14/18 11:56 Tramadol HCl (Ultram) 50 mg Q6H PRN ORAL Pain Scale (6-10) 09/12/18 16:00 09/19/18 15:59 Assessment/Plan Problem List: (1) Severe malnutrition Assessment & Plan: patient not taking in much oral intake malnutrition decreased appetite albumin okay skin turgor poor dehydrated renal insufficiency DAILY ESTIMATED NEEDS: Needs based on Underweight, renal, pre-dm/ DM, 46kg 30-35 kcals/kg 3979-6007 total kcals 1-1.5 g protein/kg 46-69 g total protein 25-30 mL/kg 1722-3301 total fluid mLs NUTRITION DIAGNOSIS: 1) Increased kcal and pro needs r/t underweight status as evidenced by pt is 63 % of [place] Body Weight w/ generalized wasting. 2) Altered nutrition related lab values r/t renal failure as evidenced by pt adm w/ elev BUN (134) elev creat (3.4), elev K, phos, on adm, now trending to WNL. CURRENT DIET: Renal PO DIET RECOMMENDATIONS: LOW NA DIET (texture as tolerated) ADDITIONAL RECOMMENDATIONS: 1) add Glucerna TID w/ meals (Add NEPRO while on Renal diet) 2) Obtain a CALIBRATED bed scale wt for accurate CBW 3) F/up w/ WC eval 4) Monitor BG/ accuchecks w/ SSI ICD Codes: E43 - Unspecified severe protein-calorie malnutrition SNOMED: 53999594 (2) Failure to thrive SNOMED: 24567748 Qualifiers: Qualified Codes: R62.7 - Adult failure to thrive (3) Decubitus skin ulcer Assessment & Plan: Patient presents with multiple skin decubitus. Tx Plan: Cleanse Right Ischium with saline. Apply therahoney, then cover with Optifoam dressing daily and prn Apply Cavilon to Right Trochanter DTPI. Cover with Optifoam q7days and prn Apply Cavilon to both heels. cover heel with Optifoam dressing q7days and prn Apply Cavilon skin barrier to lateral aspect of right and left foot Apply paste to sacrum, cover with Optifoam q3days and prn ICD Codes: L89.90 - Pressure ulcer of unspecified site, unspecified stage SNOMED: 613717656 Gerald Mustafa Sep 14, 2018 13:53
[2018-09-14 16:00] VITALS: BP 114/68
--- NOTE | 2018-09-14 16:31 | Consultation ---
History of Present Illness General Chief Complaint: Altered Level of Consciousness Present Illness Allergies: Coded Allergies: PEANUT (Verified Allergy, Unknown, 09/12/18) Medication History Scheduled Atorvastatin Calcium* (Lipitor*), 10 MG ORAL BEDTIME, (Reported) Baclofen* (Baclofen*), 10 MG ORAL THREE TIMES A DAY, (Reported) Bisacodyl (Dulcolax), 10 MG RC NEEDED, (Reported) Cefazolin Sodium/Dextrose,Iso (Cefazolin 2 Gm-D5w Bag), 2 GM IV Q8HR, (Reported) Docusate Sodium* (Colace*), 100 MG ORAL DAILY, (Reported) Docusate Sodium* (Docusate Sodium*), 100 MG ORAL TWICE A DAY, (Reported) Ferrous Sulfate* (Ferrous Sulfate*), 325 MG ORAL DAILY, (Reported) Heparin Sod (Porcine) (Heparin Sodium*), 5,000 UNITS SUBQ DAILY, (Reported) Hydrochlorothiazide (Hydrochlorothiazide), 25 MG ORAL DAILY, (Reported) Lisinopril (Lisinopril*), 10 MG ORAL DAILY, (Reported) Lisinopril* (Lisinopril*), 10 MG ORAL DAILY, (Reported) Loratadine (Claritin), 10 MG ORAL DAILY, (Reported) Metformin Hcl* (Metformin Hcl*), 850 MG ORAL DAILY, (Reported) Metformin Hcl* (Metformin Hcl*), 500 MG ORAL DAILY, (Reported) Multivits,Ca,Minerals/Iron/Fa (Thera-M Tablet), 1 EACH PO DAILY, (Reported) Na Phos,M-B/Na Phos,Di-Ba* (Fleet Enema*), 133 ML RECTAL NEEDED, (Reported) Terazosin Hcl* (Hytrin*), 1 MG ORAL BEDTIME, (Reported) Scheduled PRN Acetaminophen* (Tylenol Extra Strength*), 500 MG ORAL Q6H PRN for Mild Pain/ Temp > 100.5, (Reported) Baclofen* (Baclofen*), 15 MG ORAL Q6HR PRN for Muscle Spasm, (Reported) Clonidine Hcl* (Catapres*), 0.1 MG ORAL EVERY 8 HOURS PRN for For High Blood Pressure, (Reported) Hydrocodone Bit/Acetaminophen 5-325* ([place] 5-325 Tablet*), 1 TAB ORAL Q4H PRN for For Pain, (Reported) Loratadine (Claritin), 10 MG ORAL DAILY PRN for Itching, (Reported) Tramadol Hcl* (Ultram*), 50 MG ORAL Q8HR PRN for Pain Scale (3-5), (Reported) Miscellaneous Medications Acidophilus/Bulgaricus (Floranex Tablet), 1 EACH PO, (Reported) Cranberry Fruit Concentrate (Cranberry), 450 MG PO, (Reported) Heparin Sodium,Porcine/Ns/Pf (Heparin), 2,000 UNIT IV, (Reported) Mag Hydrox/Al Hydrox/Simeth (Maalox Advanced Suspension), 770 ML PO, (Reported) Sennosides (Senna), 8.6 MG PO, (Reported) Verapamil Hcl (Verapamil Er), 240 MG PO, (Reported) Patient History Healthcare decision maker Resuscitation status Full Code Advanced Directive on File No Physical Exam Last 24 Hour Vital Signs Date Time Temp Pulse Resp B/P (MAP) Pulse Ox O2 Delivery O2 Flow Rate FiO2 09/14/18 12:25 98.4 09/14/18 11:29 98.4 78 19 114/75 (88) 94 09/14/18 09:00 Room Air 09/14/18 08:58 72 115/72 09/14/18 08:00 97.8 72 19 115/72 (86) 99 09/14/18 04:00 98.7 75 17 101/69 (80) 98 09/14/18 00:00 97.5 73 17 139/69 (92) 97 09/13/18 21:00 Room Air 09/13/18 20:00 97.8 69 18 135/61 (85) 99 Intake and Output 09/13/18 09/14/18 19:00 07:00 Intake Total 120 ml 1250 ml Output Total 1100 ml 700 ml Balance -980 ml 550 ml Intake Oral 120 ml IV Total 1250 ml Output Urine Total 1100 ml 700 ml Laboratory Tests Test 09/14/18 05:50 White Blood Count 11.9 K/UL (4.8-10.8) H Red Blood Count 4.16 M/UL (4.70-6.10) L Hemoglobin 11.6 G/DL (14.2-18.0) L Hematocrit 35.6 % (42.0-52.0) L Mean Corpuscular Volume 86 FL (80-99) Mean Corpuscular Hemoglobin 27.9 PG (27.0-31.0) Mean Corpuscular Hemoglobin Concent 32.6 G/DL (32.0-36.0) Red Cell Distribution Width 14.2 % (11.6-14.8) Platelet Count 553 K/UL (150-450) H Mean Platelet Volume 5.0 FL (6.5-10.1) L Neutrophils (%) (Auto) 66.8 % (45.0-75.0) Lymphocytes (%) (Auto) 23.8 % (20.0-45.0) Monocytes (%) (Auto) 6.6 % (1.0-10.0) Eosinophils (%) (Auto) 1.9 % (0.0-3.0) Basophils (%) (Auto) 0.9 % (0.0-2.0) Erythrocyte Sedimentation Rate 32 MM/HR (0-20) H Sodium Level 141 MMOL/L (136-145) Potassium Level 3.4 MMOL/L (3.5-5.1) L Chloride Level 103 MMOL/L (98-107) Carbon Dioxide Level 24 MMOL/L (21-32) Anion Gap 14 mmol/L (5-15) Blood Urea Nitrogen 58 mg/dL (7-18) H Creatinine 1.2 MG/DL (0.55-1.30) Estimat Glomerular Filtration Rate > 60 mL/min (>60) Glucose Level 140 MG/DL (74-106) H Uric Acid 11.0 MG/DL (2.6-7.2) H Calcium Level 9.5 MG/DL (8.5-10.1) Phosphorus Level 1.5 MG/DL (2.5-4.9) L Magnesium Level 1.8 MG/DL (1.8-2.4) Total Bilirubin 0.5 MG/DL (0.2-1.0) Aspartate Amino Transf (AST/SGOT) 114 U/L (15-37) H Alanine Aminotransferase (ALT/SGPT) 119 U/L (12-78) H Alkaline Phosphatase 83 U/L (46-116) Total Creatine Kinase 755 U/L (26-308) H Pro-B-Type Natriuretic Peptide 160 pg/mL (0-125) H Total Protein 8.4 G/DL (6.4-8.2) H Albumin 3.8 G/DL (3.4-5.0) Globulin 4.6 g/dL Albumin/Globulin Ratio 0.8 (1.0-2.7) L Height (Feet): 5 Height (Inches): 7.00 Weight (Pounds): 100 Medications Current Medications Medications (Trade) Dose Ordered Sig/Taty Route PRN Reason Start Time Stop Time Status Last Admin Dose Admin Acetaminophen (Tylenol) 500 mg Q6H PRN ORAL Mild Pain/Temp > 100.5 09/12/18 16:00 10/12/18 15:59 09/14/18 11:55 Allopurinol (Zyloprim) 100 mg DAILY ORAL 09/14/18 09:00 10/14/18 08:59 09/14/18 11:10 Amlodipine Besylate (Norvasc) 5 mg DAILY ORAL 09/13/18 09:00 10/13/18 08:59 09/13/18 08:32 Barium Sulfate (Readi-Cat 2) 450 ml NOW PRN ORAL Radiology Procedure 09/14/18 08:45 09/16/18 08:42 Bisacodyl (Dulcolax) 10 mg DAILYPRN PRN RECTAL Constipation 09/12/18 16:00 10/12/18 15:59 Cefepime HCl 1 gm/ Dextrose 55 ml @ 110 mls/hr Q24H IVPB 09/14/18 09:00 09/21/18 08:59 09/14/18 11:07 Dextrose 1,000 ml @ 75 mls/hr [id number] IV 09/14/18 10:00 10/12/18 09:59 09/14/18 11:11 Docusate Sodium (Colace) 100 mg TID ORAL 09/12/18 18:00 10/12/18 17:59 09/12/18 18:08 Heparin Sodium (Porcine) (Heparin 5000 units/ml) 5,000 units EVERY 12 HOURS SUBQ 09/12/18 21:00 10/12/18 20:59 09/14/18 11:13 Hydralazine HCl (Apresoline) 25 mg Q4H PRN ORAL bp over 160 syst 09/12/18 16:15 10/12/18 16:14 Pantoprazole (Protonix) 40 mg EVERY 12 HOURS ORAL 09/14/18 21:00 10/14/18 20:59 Potassium Phosphate 30 mm/ Sodium Chloride 285 ml @ 47.5 mls/hr ONCE ONCE IV 09/14/18 11:00 09/14/18 16:59 09/14/18 11:56 Tramadol HCl (Ultram) 50 mg Q6H PRN ORAL Pain Scale (6-10) 09/12/18 16:00 09/19/18 15:59 Assessment/Plan Assessment/Plan Hematology Consultation Chief Complaint: Altered Level of Consciousness Source: Patient, Medical Record, EMS RFC: Anemia, FTT, Thrombocytosis, Hyperproteinemia DOS: 09/14/18 REMaxime MD: Cele ID Patient known to me from prior admission. Patient presents with lack of appetite and not eating. 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 He has a Rai catheter. He states he has left lower quadrant abdominal pain. He moved his bowels yesterday. He states he is not hungry at this time. The pain is rated 8/10 nonradiating. He states he is thirsty. BPH and urinary retention with chronic rai. No fevers, cough, NV, chest pain, cough, headache, joint pain. Chronic weakness and bed bound. Mytonic muscular dystrophy. Coded Allergies: PEANUT (Verified Allergy, Unknown, 09/12/18) Past Medical History: see triage record Social History: Denies: smoking Social History Narrative born [facility] Hx Cardiac Problems: No - BPH Hx Hypertension: Yes Hx Pacemaker: No - bph,urinary retention, gerd, Hx COPD: Yes Hx Diabetes: Yes Hx Cancer: No Hx Gastrointestinal Problems: Yes - GERD, Anemia Hx Neurological Problems: No Review of systems: negative except mentioned in HPI Vital Signs Last Vital Signs Date Time Temp Pulse Resp B/P (MAP) Pulse Ox O2 Delivery O2 Flow Rate FiO2 09/14/18 12:25 98.4 09/14/18 11:29 78 19 114/75 (88) 94 09/14/18 09:00 Room Air General Appearance: no apparent distress, thin, Chronically Ill Eyes: bilateral eye other - Arcus bilaterally ENT: dry mucus membranes Neck: supple Cardiovascular: regular rate, rhythm, no edema Gastrointestinal: soft, no guarding, no rebound, tenderness - LLQ , less bowel sounds Genitourinary: no CVA tenderness, other - rai Musculoskeletal: other - atrophy bilateral legs with weakness and some contractures Neurologic: responsive, sensory intact, motor weakness - LE, oriented - X2 Psychiatric: depressed affect Reflexes: 1+ knee (R), 1+ knee (L) Skin: other - poor turgor, bilateral sacral decubiti - Stage 3 Laboratory Tests Test 09/12/18 11:00 09/12/18 11:05 White Blood Count 15.1 K/UL (4.8-10.8) H Red Blood Count 4.38 M/UL (4.70-6.10) L Hemoglobin 12.4 G/DL (14.2-18.0) L Hematocrit 38.2 % (42.0-52.0) L Mean Corpuscular Volume 87 FL (80-99) Mean Corpuscular Hemoglobin 28.2 PG (27.0-31.0) Mean Corpuscular Hemoglobin Concent 32.4 G/DL (32.0-36.0) Red Cell Distribution Width 14.8 % (11.6-14.8) Platelet Count 637 K/UL (150-450) H Mean Platelet Volume 4.9 FL (6.5-10.1) L Neutrophils (%) (Auto) % (45.0-75.0) Lymphocytes (%) (Auto) % (20.0-45.0) Monocytes (%) (Auto) % (1.0-10.0) Eosinophils (%) (Auto) % (0.0-3.0) Basophils (%) (Auto) % (0.0-2.0) Differential Total Cells Counted 100 Neutrophils % (Manual) 85 % (45-75) H Lymphocytes % (Manual) 13 % (20-45) L Monocytes % (Manual) 2 % (1-10) Eosinophils % (Manual) 0 % (0-3) Basophils % (Manual) 0 % (0-2) Band Neutrophils 0 % (0-8) Platelet Estimate Increased H Platelet Morphology Normal Hypochromasia 1+ Anisocytosis 1+ Prothrombin Time 11.1 SEC (9.30-11.50) Prothrombin Time INR 1.1 (0.9-1.1) PTT 27 SEC (23-33) Sodium Level 144 MMOL/L (136-145) Potassium Level 5.1 MMOL/L (3.5-5.1) Chloride Level 106 MMOL/L (98-107) Carbon Dioxide Level 16 MMOL/L (21-32) L Anion Gap 22 mmol/L (5-15) H Blood Urea Nitrogen 134 mg/dL (7-18) H Creatinine 3.4 MG/DL (0.55-1.30) H Estimate Glomerular Filtration Rate 18.1 mL/min (>60) Glucose Level 117 MG/DL (74-106) H Lactic Acid Level 1.10 mmol/L (0.4-2.0) Calcium Level 10.3 MG/DL (8.5-10.1) H Phosphorus Level 5.9 MG/DL (2.5-4.9) H Magnesium Level 2.7 MG/DL (1.8-2.4) H Total Bilirubin 0.3 MG/DL (0.2-1.0) Aspartate Amino Transferase (AST) 27 U/L (15-37) Alanine Aminotransferase (ALT) 45 U/L (12-78) Alkaline Phosphatase 88 U/L (46-116) Total Creatine Kinase 356 U/L (26-308) H Troponin I 0.004 ng/mL (0.000-0.056) Pro-B-Type Natriuretic Peptide 244 pg/mL (0-125) H Total Protein 9.3 G/DL (6.4-8.2) H Albumin 4.3 G/DL (3.4-5.0) Globulin 5.0 g/dL Albumin/Globulin Ratio 0.9 (1.0-2.7) L Lipase 141 U/L (73-393) Urine Color Pale yellow Urine Appearance Cloudy Urine pH 5 (4.5-8.0) Urine Specific [place] 1.020 (1.005-1.035) Urine Protein 3+ (NEGATIVE) H Urine Glucose (UA) Negative (NEGATIVE) Urine Ketones 1+ (NEGATIVE) H Urine Blood 5+ (NEGATIVE) H Urine Nitrite Positive (NEGATIVE) H Urine Bilirubin Negative (NEGATIVE) Urine Urobilinogen Normal MG/DL (0.0-1.0) Urine Leukocyte Esterase 3+ (NEGATIVE) H Urine RBC 30-40 /HPF (0 - 0) H Urine WBC 60-80 /HPF (0 - 0) H Urine Squamous Epithelial Cells Occasional /LPF Urine Bacteria Many /HPF (NONE) H Assessment and Recs: # Failure to thrive - decreased bmi and low protein --> have ordered for cea level --> will also obtain q3d caloric counts --> have ordered for cea --> may consider mirtazapine as appetite stimulant # Anemia of chronic disease (or of iron deficiency) due to underlying chronic medical issues, multifactorial --> Anemia workup has been ordered --> No evidence of hemolysis is noted, peripheral smear has been reviewed. --> Hgb goal >7. Transfuse prn. --> Epogen or iron at this time is not particularly indicated --> Medications have been reviewed --> evaluate with Gi team prn # Thrombocytosis - likely related to reactive process (and/or underlying infection) --> Continue to monitor for improvement --> Trend CBC as needed --> If continues to be elevated, consider to send for AMBER-2 --> Smear reviewed and no abnormalities noted. *Under manual differential # Muscular dystrophy # Fecal impaction # Renal failure (ARF), acute on chronic # DESTINY as per renal # Sacral decub --> appreciate surg recs The timing of this note does not necessarily reflect the time of the patient was seen. Greatly appreciate consultation! Samuel Salazar MD Sep 14, 2018 16:31
[2018-09-14 19:12] LABS: % IRON SATURATION 53 % (15-50); IRON 120 ug/dL (50-175); TOTAL IRON BINDING CAPACITY 227 ug/dL (250-450)
[2018-09-14 19:15] LABS: INR 1.1 (0.9-1.1)
--- NOTE | 2018-09-14 19:21 | NUR ---
HAND-OFF: Report given to RN Van.
[2018-09-14 19:36] LABS: FERRITIN 465 NG/ML (8-388)
--- NOTE | 2018-09-14 19:54 | NUR ---
NURSE NOTES: Pt is in bed, awake and verbal. No acute distress noted. Wound dressing dry and intact. Room air. Suprapubic cath draining urine. 24-hour urine collection is started for creatinine clearance. Bed low in position,side rails up an d adriano;l light within reach.
[2018-09-14 20:00] VITALS: BP 114/65
[2018-09-15] VITALS: BP 130/80
[2018-09-15 04:00] VITALS: BP 100/67
--- NOTE | 2018-09-15 07:05 | NUR ---
HAND-OFF: Report given to Vu Cook RN.Pt is awake and alert. No acute distress noted.
[2018-09-15 07:25] LABS: BASOPHILS % (AUTO) 0.8 % (0.0-2.0); EOSINOPHILS % (AUTO) 3.9 % (0.0-3.0); HEMATOCRIT 32.8 % (42.0-52.0); HEMOGLOBIN 10.8 G/DL (14.2-18.0); LYMPHOCYTES % (AUTO) 26.6 % (20.0-45.0); MEAN CORPUSCULAR VOLUME 85 FL (80-99); MONOCYTES % (AUTO) 6.1 % (1.0-10.0); NEUTROPHILS % (AUTO) 62.6 % (45.0-75.0); PLATELET COUNT 455 K/UL (150-450); RED BLOOD COUNT 3.86 M/UL (4.70-6.10); RED CELL DISTRIBUTION WIDTH 14.1 % (11.6-14.8); WHITE BLOOD COUNT 11.1 K/UL (4.8-10.8)
[2018-09-15 07:51] LABS: ANION GAP 12 mmol/L (5-15); BLOOD UREA NITROGEN 30 mg/dL (7-18); CARBON DIOXIDE 25 MMOL/L (21-32); CHLORIDE 101 MMOL/L (98-107); CREATININE 0.9 MG/DL (0.55-1.30); POTASSIUM 3.1 MMOL/L (3.5-5.1); SODIUM 138 MMOL/L (136-145)
--- NOTE | 2018-09-15 07:53 | NUR ---
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
[2018-09-15 08:00] VITALS: BP 145/76
[2018-09-15] MEDS: Docusate 100mg cap ORAL SCH ×4 (08:32→17:29)
[2018-09-15] MEDS: Allopurinol 100mg Tab ORAL SCH (08:33)
[2018-09-15] MEDS: Cefepime HCl 1 GM in D5W 55 ML IVPB SCH (08:33)
[2018-09-15] MEDS: Heparin 5000 units/ml inj SUBQ SCH ×2 (08:35→21:56)
[2018-09-15 10:57] LABS: PHOSPHORUS 2.1 MG/DL (2.5-4.9)
[2018-09-15 12:00] VITALS: BP 119/67
--- NOTE | 2018-09-15 13:39 | Nephrology Progress Note ---
Assessment/Plan Problem List: (1) Renal failure (ARF), acute on chronic (2) UTI (urinary tract infection) (3) Failure to thrive (4) Severe malnutrition Assessment Acute Renal failure - On DIURETICS_ METFORMIN _ ZESTRIL prior to admission ? CKD underlying Dehydration Supra pubic cath UTI Plan Hydrate - D5W k and Phos and Mag supplement as needed monitor renal parameters Antibiotics Avoid Nephrotoxics Cefepime IV Per orders diet to regular easy chew Subjective ROS Limited/Unobtainable: No Objective Objective Last 24 Hour Vital Signs Date Time Temp Pulse Resp B/P (MAP) Pulse Ox O2 Delivery O2 Flow Rate FiO2 09/15/18 12:00 97.2 88 18 119/67 (84) 96 09/15/18 09:00 Room Air 09/15/18 08:33 75 145/76 09/15/18 08:00 98.8 75 18 145/76 (99) 98 09/15/18 04:00 98.9 88 18 100/67 (78) 97 09/15/18 00:00 98.7 86 18 130/80 (97) 97 92 09/14/18 21:00 Room Air 09/14/18 20:00 99.1 86 18 114/65 (81) 97 09/14/18 16:00 98.5 70 20 114/68 (83) 97 Intake and Output 09/14/18 09/15/18 19:00 07:00 Intake Total 1252.5 ml 1140 ml Output Total 650 ml 1000 ml Balance 602.5 ml 140 ml Intake Oral 480 ml 240 ml IV Total 772.5 ml 900 ml Output Urine Total 650 ml 1000 ml # Bowel Movements 1 Laboratory Tests 09/14/18 18:20: Prothrombin Time 11.6H, Prothromb Time International Ratio 1.1, Iron Level 120, Total Iron Binding Capacity 227L, Percent Iron Saturation 53H, Unsaturated Iron Binding 107L, Ferritin 465H, Total Protein (PEP) [Pending], Albumin (PEP) [ Pending], Globulin (PEP) [Pending], Albumin/Globulin Ratio [Pending], Alpha-1- Globulins [Pending], Nxisf-0-Vqzecluwb [Pending], Beta Globulins [Pending], Beta Gamma Globulin [Pending], PEP Abnormal Protein Bands [Pending], Protein Electrophoresis Interpret [Pending], Carcinoembryonic Antigen [Pending] 09/15/18 05:40: Phosphorus Level 2.1L, Magnesium Level 1.6L 09/15/18 05:45: White Blood Count 11.1H, Red Blood Count 3.86L, Hemoglobin 10.8L, Hematocrit 32.8L, Mean Corpuscular Volume 85, Mean Corpuscular Hemoglobin 27.9, Mean Corpuscular Hemoglobin Concent 32.9, Red Cell Distribution Width 14.1, Platelet Count 455H, Mean Platelet Volume 5.1L, Neutrophils (%) (Auto) 62.6, Lymphocytes (%) (Auto) 26.6, Monocytes (%) (Auto) 6.1, Eosinophils (%) (Auto) 3.9H, Basophils (%) (Auto) 0.8, Sodium Level 138, Potassium Level 3.1L, Chloride Level 101, Carbon Dioxide Level 25, Anion Gap 12, Blood Urea Nitrogen 30H, Creatinine 0.9, Estimat Glomerular Filtration Rate > 60, Glucose Level 114H, Calcium Level 9.0 Height (Feet): 5 Height (Inches): 7.00 Weight (Pounds): 100 General Appearance: no apparent distress Cardiovascular: normal rate Respiratory/Chest: lungs clear Abdomen: soft Objective no change Jesse Moya MD Sep 15, 2018 13:39
--- NOTE | 2018-09-15 13:51 | Progress Note ---
DATE: 09/14/2018 SUBJECTIVE: The patient is awake, alert, afebrile, and hemodynamically stable. nearly completely resolved. PHYSICAL EXAMINATION: VITAL SIGNS: Blood pressure is 114/65, his pulse is 86, respirations are 18, and temperature 99.1. HEENT: Eyes were normal. ENT, mucous membranes were moist and intact. NECK: Supple with no JVD without lymph nodes. LUNGS: Clear. HEART: Normal sounds with regular beats. ABDOMEN: Soft and nontender with normal bowel sounds. Palpation of the suprapubic area generates mild pain different in intensity than the one it was 2 days ago. EXTREMITIES: Warm without cyanosis, clubbing, or edema. LABORATORY AND DIAGNOSTIC DATA: His hemoglobin is 11.6, hematocrit with MCV of 86, WBC of 11.9, and platelets is 553,000. WBC was 15.1 on 09/12/2018 and 18.1 on 09/13/2018. His BUN and creatinine is 68 and 1.2 respectively. Sodium is 141, potassium 3.4, chloride 103, and CO2 is 24. His albumin is 120. Total iron-binding capacity is 227 iron saturation is . The patient underwent CT scan of the abdomen and pelvis with oral contrast only, unavailable. IMPRESSION AND PLAN: The patient is in stable condition. We will continue with the current management. Repeat laboratory tests will be done in the a.m. Oni Oakley M.D. DR: MAR JOB#: [id number] CC:
[2018-09-15] MEDS: Phospha 250 Neutral tab ORAL SCH ×2 (13:59→17:29)
--- NOTE | 2018-09-15 15:02 | General Progress Note ---
Assessment/Plan Assessment/Plan Assessment and Recs: # Failure to thrive - decreased bmi and low protein --> have ordered for cea level --> will also obtain q3d caloric counts --> have ordered for cea --> mirtazapine 7.5mg qhs has been started # Anemia of chronic disease due to underlying chronic medical issues, multifactorial --> Anemia workup has been ordered/ordered, ferritin 465, tibc 227 --> No evidence of hemolysis is noted, peripheral smear has been reviewed. --> Hgb goal >7. Transfuse prn. --> Epogen or iron at this time is not particularly indicated --> Medications have been reviewed --> evaluate with Gi team prn # Thrombocytosis - likely related to reactive process (and/or underlying infection) --> Continue to monitor for improvement --> Trend CBC as needed --> If continues to be elevated, consider to send for AMBER-2 --> Smear reviewed and no abnormalities noted. *Under manual differential # Muscular dystrophy # Fecal impaction # Renal failure (ARF), acute on chronic # DESTINY as per renal # Sacral decub --> appreciate surg recs The timing of this note does not necessarily reflect the time of the patient was seen. Greatly appreciate consultation! Subjective HEENT: Denies: no symptoms, eye pain, blurred vision, tearing, double vision, ear pain, ear discharge, nose pain, nose congestion, throat pain, throat swelling, mouth pain, mouth swelling, other Cardiovascular: Denies: no symptoms, chest pain, edema, irregular heart rate, lightheadedness, palpitations, syncope, other Respiratory: Denies: no symptoms, cough, orthopnea, shortness of breath, SOB with excertion, SOB at rest, sputum, stridor, wheezing, other Gastrointestinal/Abdominal: Denies: no symptoms, abdomen distended, abdominal pain, black stools, tarry stools, blood in stool, constipated, diarrhea, difficulty swallowing, nausea, poor appetite, poor fluid intake, rectal bleeding , vomiting, other Genitourinary: Denies: no symptoms, burning, discharge, frequency, flank pain, hematuria, incontinence, pain, urgency, other Neurologic/Psychiatric: Denies: no symptoms, anxiety, depressed, emotional problems, headache, numbness, paresthesia, pre-existing deficit, seizure, tingling, tremors, weakness, other Endocrine: Denies: no symptoms, excessive sweating, flushing, intolerance to cold, intolerance to heat, increased hunger, increased thirst, increased urine, unexplained weight gain, unexplained weight loss, other Hematologic/Lymphatic: Denies: no symptoms, anemia, easy bleeding, easy bruising, other Allergies: Coded Allergies: PEANUT (Verified Allergy, Unknown, 09/12/18) Subjective 09/15: awake, alert, verbal, feeling better overall, hgb lower 10.8 Objective Last 24 Hour Vital Signs Date Time Temp Pulse Resp B/P (MAP) Pulse Ox O2 Delivery O2 Flow Rate FiO2 09/15/18 12:00 97.2 88 18 119/67 (84) 96 09/15/18 09:00 Room Air 09/15/18 08:33 75 145/76 09/15/18 08:00 98.8 75 18 145/76 (99) 98 09/15/18 04:00 98.9 88 18 100/67 (78) 97 09/15/18 00:00 98.7 86 18 130/80 (97) 97 92 09/14/18 21:00 Room Air 09/14/18 20:00 99.1 86 18 114/65 (81) 97 09/14/18 16:00 98.5 70 20 114/68 (83) 97 Intake and Output 09/14/18 09/15/18 19:00 07:00 Intake Total 1252.5 ml 1140 ml Output Total 650 ml 1000 ml Balance 602.5 ml 140 ml Intake Oral 480 ml 240 ml IV Total 772.5 ml 900 ml Output Urine Total 650 ml 1000 ml # Bowel Movements 1 Laboratory Tests 09/14/18 18:20: Prothrombin Time 11.6H, Prothromb Time International Ratio 1.1, Iron Level 120, Total Iron Binding Capacity 227L, Percent Iron Saturation 53H, Unsaturated Iron Binding 107L, Ferritin 465H, Total Protein (PEP) [Pending], Albumin (PEP) [ Pending], Globulin (PEP) [Pending], Albumin/Globulin Ratio [Pending], Alpha-1- Globulins [Pending], Ceqal-3-Hqjeqnriy [Pending], Beta Globulins [Pending], Beta Gamma Globulin [Pending], PEP Abnormal Protein Bands [Pending], Protein Electrophoresis Interpret [Pending], Carcinoembryonic Antigen [Pending] 09/15/18 05:40: Phosphorus Level 2.1L, Magnesium Level 1.6L 09/15/18 05:45: White Blood Count 11.1H, Red Blood Count 3.86L, Hemoglobin 10.8L, Hematocrit 32.8L, Mean Corpuscular Volume 85, Mean Corpuscular Hemoglobin 27.9, Mean Corpuscular Hemoglobin Concent 32.9, Red Cell Distribution Width 14.1, Platelet Count 455H, Mean Platelet Volume 5.1L, Neutrophils (%) (Auto) 62.6, Lymphocytes (%) (Auto) 26.6, Monocytes (%) (Auto) 6.1, Eosinophils (%) (Auto) 3.9H, Basophils (%) (Auto) 0.8, Sodium Level 138, Potassium Level 3.1L, Chloride Level 101, Carbon Dioxide Level 25, Anion Gap 12, Blood Urea Nitrogen 30H, Creatinine 0.9, Estimat Glomerular Filtration Rate > 60, Glucose Level 114H, Calcium Level 9.0 Height (Feet): 5 Height (Inches): 7.00 Weight (Pounds): 100 Objective General Appearance: no apparent distress, thin, chronically Ill Eyes: bilateral eye other - Arcus bilaterally ENT: dry mucus membranes Neck: supple Cardiovascular: regular rate, rhythm, no edema Gastrointestinal: soft, no guarding, no rebound, tenderness - LLQ , less bowel sounds Genitourinary: no CVA tenderness, other - rai Musculoskeletal: other - atrophy bilateral legs with weakness and some contractures Neurologic: responsive, sensory intact, motor weakness - LE, oriented - X2 Psychiatric: depressed affect Reflexes: 1+ knee (R), 1+ knee (L) Skin: other - poor turgor, bilateral sacral decubitis - Stage 3 Samuel Salazar MD Sep 15, 2018 15:02
--- NOTE | 2018-09-15 15:46 | Surgery Progress Note ---
Surgery Progress Note Subjective Symptoms: improved Additional Comments no acute events. doing well. comfortable. Objective Last 24 Hour Vital Signs Date Time Temp Pulse Resp B/P (MAP) Pulse Ox O2 Delivery O2 Flow Rate FiO2 09/15/18 12:00 97.2 88 18 119/67 (84) 96 09/15/18 09:00 Room Air 09/15/18 08:33 75 145/76 09/15/18 08:00 98.8 75 18 145/76 (99) 98 09/15/18 04:00 98.9 88 18 100/67 (78) 97 09/15/18 00:00 98.7 86 18 130/80 (97) 97 92 09/14/18 21:00 Room Air 09/14/18 20:00 99.1 86 18 114/65 (81) 97 09/14/18 16:00 98.5 70 20 114/68 (83) 97 I&O Intake and Output 09/14/18 09/15/18 19:00 07:00 Intake Total 1252.5 ml 1140 ml Output Total 650 ml 1000 ml Balance 602.5 ml 140 ml Intake Oral 480 ml 240 ml IV Total 772.5 ml 900 ml Output Urine Total 650 ml 1000 ml # Bowel Movements 1 Wound: clean, other Drains: other Cardiovascular: RSR Respiratory: clear Abdomen: soft, present bowel sounds, non-distended Extremities: other Laboratory Tests Test 09/14/18 18:20 09/15/18 05:40 09/15/18 05:45 Prothrombin Time 11.6 SEC (9.30-11.50) H Prothromb Time International Ratio 1.1 (0.9-1.1) Iron Level 120 ug/dL (50-175) Total Iron Binding Capacity 227 ug/dL (250-450) L Percent Iron Saturation 53 % (15-50) H Unsaturated Iron Binding 107 ug/dL (112-346) L Ferritin 465 NG/ML (8-388) H Total Protein (PEP) Pending Albumin (PEP) Pending Globulin (PEP) Pending Albumin/Globulin Ratio Pending [id number] Pending [id number] Pending Beta Globulins Pending Beta Gamma Globulin Pending PEP Abnormal Protein Bands Pending Protein Electrophoresis Interpret Pending Carcinoembryonic Antigen Pending Phosphorus Level 2.1 MG/DL (2.5-4.9) L Magnesium Level 1.6 MG/DL (1.8-2.4) L White Blood Count 11.1 K/UL (4.8-10.8) H Red Blood Count 3.86 M/UL (4.70-6.10) L Hemoglobin 10.8 G/DL (14.2-18.0) L Hematocrit 32.8 % (42.0-52.0) L Mean Corpuscular Volume 85 FL (80-99) Mean Corpuscular Hemoglobin 27.9 PG (27.0-31.0) Mean Corpuscular Hemoglobin Concent 32.9 G/DL (32.0-36.0) Red Cell Distribution Width 14.1 % (11.6-14.8) Platelet Count 455 K/UL (150-450) H Mean Platelet Volume 5.1 FL (6.5-10.1) L Neutrophils (%) (Auto) 62.6 % (45.0-75.0) Lymphocytes (%) (Auto) 26.6 % (20.0-45.0) Monocytes (%) (Auto) 6.1 % (1.0-10.0) Eosinophils (%) (Auto) 3.9 % (0.0-3.0) H Basophils (%) (Auto) 0.8 % (0.0-2.0) Sodium Level 138 MMOL/L (136-145) Potassium Level 3.1 MMOL/L (3.5-5.1) L Chloride Level 101 MMOL/L (98-107) Carbon Dioxide Level 25 MMOL/L (21-32) Anion Gap 12 mmol/L (5-15) Blood Urea Nitrogen 30 mg/dL (7-18) H Creatinine 0.9 MG/DL (0.55-1.30) Estimat Glomerular Filtration Rate > 60 mL/min (>60) Glucose Level 114 MG/DL (74-106) H Calcium Level 9.0 MG/DL (8.5-10.1) Plan Problems: (1) Severe malnutrition Assessment & Plan: patient not taking in much oral intake malnutrition decreased appetite albumin okay skin turgor poor dehydrated renal insufficiency DAILY ESTIMATED NEEDS: Needs based on Underweight, renal, pre-dm/ DM, 46kg 30-35 kcals/kg 3735-3629 total kcals 1-1.5 g protein/kg 46-69 g total protein 25-30 mL/kg 4108-3740 total fluid mLs NUTRITION DIAGNOSIS: 1) Increased kcal and pro needs r/t underweight status as evidenced by pt is 63 % of [place] Body Weight w/ generalized wasting. 2) Altered nutrition related lab values r/t renal failure as evidenced by pt adm w/ elev BUN (134) elev creat (3.4), elev K, phos, on adm, now trending to WNL. CURRENT DIET: Renal PO DIET RECOMMENDATIONS: LOW NA DIET (texture as tolerated) ADDITIONAL RECOMMENDATIONS: 1) add Glucerna TID w/ meals (Add NEPRO while on Renal diet) 2) Obtain a CALIBRATED bed scale wt for accurate CBW 3) F/up w/ WC eval 4) Monitor BG/ accuchecks w/ SSI (2) Failure to thrive (3) Decubitus skin ulcer Assessment & Plan: Patient presents with multiple skin decubitus. Tx Plan: Cleanse Right Ischium with saline. Apply therahoney, then cover with Optifoam dressing daily and prn Apply Cavilon to Right Trochanter DTPI. Cover with Optifoam q7days and prn Apply Cavilon to both heels. cover heel with Optifoam dressing q7days and prn Apply Cavilon skin barrier to lateral aspect of right and left foot Apply paste to sacrum, cover with Optifoam q3days and prn Gerald Mustafa Sep 15, 2018 15:46
[2018-09-15 16:00] VITALS: BP 108/65
--- NOTE | 2018-09-15 19:13 | Diagnostic Imaging Report ---
Indication:Abdominal pain Technique: Grayscale and duplex Doppler imaging of the abdomen performed. Comparison: None Findings: Webster catheter noted well situated in the bladder lumen. There is no hydronephrosis. Spleen is normal in size. Small left parapelvic cyst noted. There are stones within the left kidney. Gallbladder is unremarkable. The liver is unremarkable. There is no free fluid. There is no biliary ductal dilatation. CBD is 6 mm. Portal venous flow established by Doppler. There is no ascites. There is no splenomegaly. There is a nonperistaltic shadowing structure adjacent to the distal aorta which is probably part of the spine or bowel gas. IMPRESSION: Webster catheter in good position. Nonobstructive stones in the left kidney. .
--- NOTE | 2018-09-15 19:13 | Diagnostic Imaging Report ---
Indication: Abdominal pain Technique: Continuous helical transaxial imaging of the abdomen and pelvis was obtained from the lung bases to the pubic symphysis. No intravenous contrast was administered. Coronal 2-D reformats were also obtained. Automatic Exposure Control was utilized. Total Dose length Product (DLP): 370.[address] Dose Index Volume (CTDIvol): 7.72 mGy Comparison: none Findings: There are multiple nonobstructive stones within the left kidney. There is a Webster catheter present within the urinary bladder lumen in good position. There is thickening of the wall the urinary bladder. Correlate for cystitis. There is a deformity of the right hip due to old right femoral neck fracture. There is severe DJD of the right hip with osteophytes are present. A small left inguinal hernia containing fat demonstrated. Aortoiliac calcifications are present. There is no hydronephrosis. The gallbladder is unremarkable. No evidence of bowel obstruction or free fluid or free air. IMPRESSION: Multiple nonobstructive stones within the left kidney. Suspected cystitis. Correlate clinically. Webster catheter noted Old right hip fracture. Left inguinal hernia containing fat The CT scanner at [facility] is accredited by the [employer] and the scans are performed using dose optimization techniques as appropriate to a performed exam including Automatic Exposure control.
--- NOTE | 2018-09-15 19:14 | Cardiology Report ---
APPROVED REPORT EKG Measurement Heart [id number] Normal sinus rhythm Right bundle branch block Abnormal ECG
[2018-09-15 20:00] VITALS: BP 113/79
--- NOTE | 2018-09-15 20:01 | NUR ---
HAND-OFF: Report given to ZBIGNIEW Morelos.
--- NOTE | 2018-09-15 20:02 | NUR ---
HAND-OFF: Report given to ZBIGNIEW Newton.
--- NOTE | 2018-09-15 20:05 | NUR ---
NURSE NOTES: Pt is in bed, awake and alert. No acute distress noted. 24-hour creatinine clearance will be sent to the lab. Wound dressing dry and intact. bed low in position,side rails up and call light within reach.
--- NOTE | 2018-09-15 22:00 | NUR ---
NURSE NOTES: Urine for 24-H creatinine clearance collected and taken to the lab. Dr. Oakley is notifed of pty's wish to be discharged back to [facility].
[2018-09-16] VITALS: BP 115/61
[2018-09-16 04:00] VITALS: BP 109/67
--- NOTE | 2018-09-16 06:00 | Progress Note ---
DATE: 09/15/2018 SUBJECTIVE: The patient is awake, alert, afebrile, and hemodynamically stable. Results of his CT scan is not available. unsafe to discharge the patient today. PHYSICAL EXAMINATION: VITAL SIGNS: Blood pressure 113/79, pulse 98, respirations of 20, temperature 98.4. HEENT: Eyes were normal. ENT, mucous membranes were moist and intact. NECK: Supple with no JVD without lymph nodes. Tracheostomy site is clean. LUNGS: Clear without rhonchi, rales, or wheezing. Secretions are small, thin, and hancock. HEART: Normal sounds with regular beats. There is near tachycardia at rest. ABDOMEN: Soft and nontender with normal bowel sounds. the patient had on admission cannot be generated now. EXTREMITIES: Warm without cyanosis, clubbing, or edema. LABORATORY AND DIAGNOSTIC DATA: Hemoglobin is 10.8, hematocrit 32.9 with MCV of 85, WBC of 11.1, and platelets is 455. His BUN and creatinine is 13 and 0.9 respectively. His sodium is 138, potassium 3.1, chloride 101, CO2 is 25. Magnesium is 1.6 and phosphorus is 2.1. His calcium was 9. Result of the CT scan of the abdomen and pelvis not available. The patient has multiple nonobstructive stones in the left kidney, right femoral neck fracture, which is associated with severe advance degenerative joint disease of the right hip, small left inguinal hernia containing fat and thickened bladder wall suggestive of cystitis. PLAN: corrected potassium . His urinalysis done three days ago revealed 16 to 18 wbcs. The patient is on cefepime 1 g IV piggyback q.8 h. CBC,BMP, and UA will be done in the a.m. The patient will be reassessed for discharge in the morning. Oni Oakley M.D. DR: Xochilt JOB#: [id number] CC:
[2018-09-16 07:02] LABS: ALANINE AMINOTRANSFERASE 127 U/L (12-78); ALBUMIN 3.3 G/DL (3.4-5.0); ALBUMIN/GLOBULIN RATIO 0.8 (1.0-2.7); ALKALINE PHOSPHATASE 85 U/L (46-116); ANION GAP 10 mmol/L (5-15); ASPARTATE AMINO TRANSFERASE 83 U/L (15-37); BILIRUBIN,TOTAL 0.2 MG/DL (0.2-1.0); BLOOD UREA NITROGEN 22 mg/dL (7-18); CALCIUM 8.9 MG/DL (8.5-10.1); CARBON DIOXIDE 28 MMOL/L (21-32); CHLORIDE 101 MMOL/L (98-107); CREATININE 0.8 MG/DL (0.55-1.30); PHOSPHORUS 2.3 MG/DL (2.5-4.9); POTASSIUM 3.9 MMOL/L (3.5-5.1); SODIUM 139 MMOL/L (136-145)
[2018-09-16 07:09] LABS: BASOPHILS % (AUTO) 0.8 % (0.0-2.0); EOSINOPHILS % (AUTO) 4.2 % (0.0-3.0); HEMATOCRIT 30.2 % (42.0-52.0); LYMPHOCYTES % (AUTO) 31.1 % (20.0-45.0); MEAN CORPUSCULAR VOLUME 85 FL (80-99); NEUTROPHILS % (AUTO) 56.9 % (45.0-75.0); PLATELET COUNT 403 K/UL (150-450); RED BLOOD COUNT 3.56 M/UL (4.70-6.10); RED CELL DISTRIBUTION WIDTH 14.2 % (11.6-14.8); WHITE BLOOD COUNT 10.9 K/UL (4.8-10.8)
[2018-09-16 07:14] LABS: APPEARANCE,URINE CLEAR; BILIRUBIN, URINE NEGATIVE (NEGATIVE); COLOR,URINE PALE YELLOW; GLUCOSE, URINE (UA) NEGATIVE (NEGATIVE); KETONES,URINE NEGATIVE (NEGATIVE); LEUKOCYTE ESTERASE ,URINE 3+ (NEGATIVE); NITRITE,URINE POSITIVE (NEGATIVE); PH,URINE 5 (4.5-8.0); PROTEIN,URINE 1+ (NEGATIVE); UROBILINOGEN,URINE NORMAL MG/DL (0.0-1.0)
--- NOTE | 2018-09-16 07:25 | NUR ---
HAND-OFF: Report given to ZBIGNIEW Ibanez.
--- NOTE | 2018-09-16 08:17 | NUR ---
NURSE NOTES: Patient awake and oriented,IV fluids infusing as ordered,no complaints at this time.Patient ate breakfast.Call light within reach,bed alarm is on.
[2018-09-16 08:21] VITALS: BP 120/70
[2018-09-16] MEDS: Phospha 250 Neutral tab ORAL SCH ×3 (08:39→18:18)
[2018-09-16] MEDS: Docusate 100mg cap ORAL SCH ×3 (08:39→18:17)
[2018-09-16] MEDS: Allopurinol 100mg Tab ORAL SCH (08:40)
[2018-09-16] MEDS: Heparin 5000 units/ml inj SUBQ SCH ×2 (08:41→21:44)
[2018-09-16] MEDS: Cefepime HCl 1 GM in D5W 55 ML IVPB SCH (08:42)
[2018-09-16 12:31] VITALS: BP 116/72
--- NOTE | 2018-09-16 14:51 | NUR ---
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 FAILURE TO THRIVE VS: BP 109/67, P 95, T 97.9, RR 20, SpO2 93 WBC 10.9, RBC 3.56, Hgb 10.0, Hct 30.2, K 3.1,BUN 22 Urine Blood 2+, Urine Nitrate : POSITIVE, Urine Bacteria: Moderate ABDOMINAL CT IMPRESSION: Multiple nonobstructive stones within the left kidney. Suspected cystitis. Correlate clinically. Webster catheter noted Old right hip fracture. Left inguinal hernia containing fat IS:REMERON 7.5mg D5 x1L IV MAGNESIUM SULFATE 100ml IVPB PHOSPHORUS 500mg K-DUR 20meq PROTONIX 40mg CEFEPIME 55ml IVPB ALLOPURINOL 100mg HEPARIN SUBQ ULTRAM 50mg MED/SURG STATUS
--- NOTE | 2018-09-16 15:26 | NUR ---
RD ASSESSMENT & RECOMMENDATIONS SEE CARE ACTIVITY FOR COMPLETE ASSESSMENT DAILY ESTIMATED NEEDS: Needs based on Underweight, renal, pre-dm/ DM, 46kg 30-35 kcals/kg 5463-4668 total kcals 1-1.5 g protein/kg 46-69 g total protein 25-30 mL/kg 7550-0805 total fluid mLs NUTRITION DIAGNOSIS: 1) Increased kcal and pro needs r/t underweight status, wound healing as evidenced by pt is 63% of [place] Body Weight w/ generalized wasting, admitted w/ multiple wounds, refer to WC eval. 2) Altered nutrition related lab values r/t renal failure as evidenced by pt adm w/ elev BUN (134 -> 22) elev creat (3.4 -> wnl), elev K, phos, on adm, now K wnl, phos low (2.3) CURRENT DIET:Regular, soft easy chew + Nepro BID PO DIET RECOMMENDATIONS: REGULAR/ texture as tolerated ADDITIONAL RECOMMENDATIONS: 1) HPN TID w/ meals (Rec Glucerna for carb control: A1C=6.2) 2) Obtain a CALIBRATED bed scale wt for accurate CBW 3) Wound healing: Add MVI x 1, Melvin pkt BID 4) Monitor lytes, replete as needed (low phos) 5) Monitor BGs, need for carb controlled diet- h/o DM
--- NOTE | 2018-09-16 15:43 | Nephrology Progress Note ---
Assessment/Plan Problem List: (1) Renal failure (ARF), acute on chronic (2) UTI (urinary tract infection) (3) Failure to thrive (4) Severe malnutrition Assessment Acute Renal failure - On DIURETICS_ METFORMIN _ ZESTRIL prior to admission ? CKD underlying Dehydration Supra pubic cath UTI Plan Dc Hydrate k and Phos and Mag supplement as needed monitor renal parameters Antibiotics Avoid Nephrotoxics Cefepime IV Per orders diet to regular easy chew Subjective ROS Limited/Unobtainable: No Objective Objective Last 24 Hour Vital Signs Date Time Temp Pulse Resp B/P (MAP) Pulse Ox O2 Delivery O2 Flow Rate FiO2 09/16/18 12:31 98.4 91 20 116/72 (87) 93 09/16/18 09:00 Room Air 09/16/18 09:00 Room Air 09/16/18 08:21 98.0 95 20 120/70 (87) 93 09/16/18 04:00 98.0 95 18 109/67 (81) 94 09/16/18 00:00 97.9 65 18 115/61 (79) 100 09/15/18 21:00 Room Air 09/15/18 20:00 98.4 98 20 113/79 (90) 96 09/15/18 16:00 98.5 94 18 108/65 (79) 96 Intake and Output 09/15/18 09/16/18 19:00 07:00 Intake Total 1580 ml 1350 ml Output Total 1200 ml 1200 ml Balance 380 ml 150 ml Intake Oral 720 ml 800 ml IV Total 860 ml 550 ml Output Urine Total 1200 ml 1200 ml Laboratory Tests 09/16/18 05:15: White Blood Count 10.9H, Red Blood Count 3.56L, Hemoglobin 10.0L, Hematocrit 30.2L, Mean Corpuscular Volume 85, Mean Corpuscular Hemoglobin 28.0, Mean Corpuscular Hemoglobin Concent 33.0, Red Cell Distribution Width 14.2, Platelet Count 403, Mean Platelet Volume 5.0L, Neutrophils (%) (Auto) 56.9, Lymphocytes ( %) (Auto) 31.1, Monocytes (%) (Auto) 7.0, Eosinophils (%) (Auto) 4.2H, Basophils (%) (Auto) 0.8, Sodium Level 139, Potassium Level 3.9, Chloride Level 101, Carbon Dioxide Level 28, Anion Gap 10, Blood Urea Nitrogen 22H, Creatinine 0.8, Estimat Glomerular Filtration Rate > 60, Glucose Level 112H, Uric Acid 5.4 , Calcium Level 8.9, Phosphorus Level 2.3L, Magnesium Level 2.1, Total Bilirubin 0.2, Gamma Glutamyl Transpeptidase 52, Aspartate Amino Transf (AST/ SGOT) 83H, Alanine Aminotransferase (ALT/SGPT) 127H, Alkaline Phosphatase 85, Total Protein 7.4, Albumin 3.3L, Globulin 4.1, Albumin/Globulin Ratio 0.8L 09/16/18 06:20: Urine Color Pale yellow, Urine Appearance Clear, Urine pH 5, Urine Specific [place] 1.015, Urine Protein 1+H, Urine Glucose (UA) Negative, Urine Ketones Negative, Urine Blood 2+H, Urine Nitrite PositiveH, Urine Bilirubin Negative, Urine Urobilinogen Normal, Urine Leukocyte Esterase 3+H, Urine RBC 2-4H, Urine WBC 10-15H, Urine Squamous Epithelial Cells Few, Urine Amorphous Sediment FewH, Urine Bacteria ModerateH Height (Feet): 5 Height (Inches): 7.00 Weight (Pounds): 100 General Appearance: no apparent distress Cardiovascular: tachycardia Respiratory/Chest: lungs clear Abdomen: soft Objective no change Jesse Moya MD Sep 16, 2018 15:43
[2018-09-16 16:00] VITALS: BP 116/78
--- NOTE | 2018-09-16 19:01 | NUR ---
NURSE NOTES: Patient resting,watching TV,no complaints at this time,supra pubic cath draining yellow urine,bed alarm nurse practitioner adult light within reach.
--- NOTE | 2018-09-16 19:52 | NUR ---
HAND-OFF: Report given to MIKAYLA COY.
--- NOTE | 2018-09-16 19:53 | General Progress Note ---
Assessment/Plan Assessment/Plan Assessment and Recs: # Failure to thrive - decreased bmi and low protein --> have ordered for cea level --> will also obtain q3d caloric counts --> cea is 6.2 --> mirtazapine 7.5mg qhs has been started # Anemia of chronic disease due to underlying chronic medical issues, multifactorial --> Anemia workup has been ordered/ordered, ferritin 465, tibc 227 --> No evidence of hemolysis is noted, peripheral smear has been reviewed. --> Hgb goal >7. Transfuse prn. --> Epogen or iron at this time is not particularly indicated --> Medications have been reviewed --> evaluate with Gi team prn # Thrombocytosis - likely related to reactive process (and/or underlying infection) --> Continue to monitor for improvement --> Trend CBC as needed --> If continues to be elevated, consider to send for AMBER-2 --> Smear reviewed and no abnormalities noted. *Under manual differential # Muscular dystrophy # Fecal impaction # Renal failure (ARF), acute on chronic # DESTINY as per renal # Sacral decub --> appreciate surg recs The timing of this note does not necessarily reflect the time of the patient was seen. Greatly appreciate consultation! Subjective Respiratory: Denies: no symptoms, cough, orthopnea, shortness of breath, SOB with excertion, SOB at rest, sputum, stridor, wheezing, other Gastrointestinal/Abdominal: Denies: no symptoms, abdomen distended, abdominal pain, black stools, tarry stools, blood in stool, constipated, diarrhea, difficulty swallowing, nausea, poor appetite, poor fluid intake, rectal bleeding , vomiting, other Endocrine: Denies: no symptoms, excessive sweating, flushing, intolerance to cold, intolerance to heat, increased hunger, increased thirst, increased urine, unexplained weight gain, unexplained weight loss, other Hematologic/Lymphatic: Denies: no symptoms, anemia, easy bleeding, easy bruising, other Allergies: Coded Allergies: PEANUT (Verified Allergy, Unknown, 09/12/18) Subjective 09/15: awake, alert, verbal, feeling better overall, hgb lower 10.8 09/16: anemia downtrending, ivf being given, otherwis agnieszka events Objective Last 24 Hour Vital Signs Date Time Temp Pulse Resp B/P (MAP) Pulse Ox O2 Delivery O2 Flow Rate FiO2 09/16/18 16:00 98.8 81 20 116/78 (91) 96 09/16/18 12:31 98.4 91 20 116/72 (87) 93 09/16/18 09:00 Room Air 09/16/18 09:00 Room Air 09/16/18 08:21 98.0 95 20 120/70 (87) 93 09/16/18 04:00 98.0 95 18 109/67 (81) 94 09/16/18 00:00 97.9 65 18 115/61 (79) 100 09/15/18 21:00 Room Air 09/15/18 20:00 98.4 98 20 113/79 (90) 96 Intake and Output 09/15/18 09/16/18 19:00 07:00 Intake Total 1580 ml 1350 ml Output Total 1200 ml 1200 ml Balance 380 ml 150 ml Intake Oral 720 ml 800 ml IV Total 860 ml 550 ml Output Urine Total 1200 ml 1200 ml Laboratory Tests 09/16/18 05:15: White Blood Count 10.9H, Red Blood Count 3.56L, Hemoglobin 10.0L, Hematocrit 30.2L, Mean Corpuscular Volume 85, Mean Corpuscular Hemoglobin 28.0, Mean Corpuscular Hemoglobin Concent 33.0, Red Cell Distribution Width 14.2, Platelet Count 403, Mean Platelet Volume 5.0L, Neutrophils (%) (Auto) 56.9, Lymphocytes ( %) (Auto) 31.1, Monocytes (%) (Auto) 7.0, Eosinophils (%) (Auto) 4.2H, Basophils (%) (Auto) 0.8, Sodium Level 139, Potassium Level 3.9, Chloride Level 101, Carbon Dioxide Level 28, Anion Gap 10, Blood Urea Nitrogen 22H, Creatinine 0.8, Estimat Glomerular Filtration Rate > 60, Glucose Level 112H, Uric Acid 5.4 , Calcium Level 8.9, Phosphorus Level 2.3L, Magnesium Level 2.1, Total Bilirubin 0.2, Gamma Glutamyl Transpeptidase 52, Aspartate Amino Transf (AST/ SGOT) 83H, Alanine Aminotransferase (ALT/SGPT) 127H, Alkaline Phosphatase 85, Total Protein 7.4, Albumin 3.3L, Globulin 4.1, Albumin/Globulin Ratio 0.8L 09/16/18 06:20: Urine Color Pale yellow, Urine Appearance Clear, Urine pH 5, Urine Specific [place] 1.015, Urine Protein 1+H, Urine Glucose (UA) Negative, Urine Ketones Negative, Urine Blood 2+H, Urine Nitrite PositiveH, Urine Bilirubin Negative, Urine Urobilinogen Normal, Urine Leukocyte Esterase 3+H, Urine RBC 2-4H, Urine WBC 10-15H, Urine Squamous Epithelial Cells Few, Urine Amorphous Sediment FewH, Urine Bacteria ModerateH Height (Feet): 5 Height (Inches): 7.00 Weight (Pounds): 100 Objective General Appearance: no apparent distress, thin, chronically Ill Eyes: bilateral eye other - Arcus bilaterally ENT: dry mucus membranes Neck: supple Cardiovascular: rrr, no edema Gastrointestinal: soft, no guarding, no rebound, tenderness - LLQ , less bowel sounds Genitourinary: no CVA tenderness, other - rai Musculoskeletal: other - atrophy bilateral legs with weakness and some contractures Neurologic: responsive, sensory intact, motor weakness - LE, oriented - X2 Psychiatric: depressed affect Reflexes: 1+ knee (R), 1+ knee (L) Skin: other - poor turgor, bilateral sacral decubitis - Stage 3 Samuel Salazar MD Sep 16, 2018 19:52
--- NOTE | 2018-09-16 19:53 | NUR ---
NURSE NOTES: RECEIVED PATIENT IN BED, RESTING. PATIENT alert and oriented x4. NO SIGNS OF RESPIRATORY DISTRESS. NO IV- will place one this evening. Pt on room air BED IN LOWEST POSITION, bed locked, side rails x2. CALL LIGHT WITHIN REACH. WILL CONTINUE TO MONITOR.
[2018-09-16 20:00] VITALS: BP 122/67
[2018-09-17] VITALS: BP 122/91
[2018-09-17 04:00] VITALS: BP 123/66
--- NOTE | 2018-09-17 06:00 | Progress Note ---
DATE: 09/16/2018 SUBJECTIVE: The patient is awake, alert, afebrile, hemodynamically stable, and active. PHYSICAL EXAMINATION: VITAL SIGNS: His blood pressure is 122/67, pulse is 80, respirations 18, and temperature 97.9. HEENT: Eyes were normal. ENT, mucous membranes were moist and intact. NECK: Supple with no JVD without lymph nodes. LUNGS: Clear. HEART: Normal sounds with regular beats. ABDOMEN: Soft and nontender with normal bowel sounds. EXTREMITIES: Warm without cyanosis, clubbing, or edema. LABORATORY DATA: Hemoglobin is 10.0, hematocrit is 30.2 with MCV of 85, WBC of 10.9, and platelets is 403. His BUN and creatinine is 22 and 0.8 respectively. His sodium is 139, potassium 3.9, chloride 101, CO2 is 28. His urinalysis showed 2+ blood on September 12 with . WBC of 10 to 15, it was 16 to 18 on September 12. IMPRESSION AND PLAN: The patient's clinical problem is resolving, kidney stones are floating free and without obstruction. The patient can be discharged tomorrow in the a.m. back to the extended care facility with the same medication. Oni Oakley M.D. DR: KENDRA JOB#: [id number] CC:
--- NOTE | 2018-09-17 07:30 | NUR ---
HAND-OFF: Report given to ZBIGNIEW Vela.
--- NOTE | 2018-09-17 07:40 | NUR ---
NURSE NOTES: Received patient on bed, awake. IV site intact and patent. Dressings dry and intact. Suprapubic catheter intact and patent. Bed in locked position, call light in reach. Patient denies shortness of breath or pain. Room board updated, will continue to monitor.
[2018-09-17 08:00] VITALS: BP 128/84
[2018-09-17] MEDS: Phospha 250 Neutral tab ORAL SCH ×2 (09:20→13:00)
[2018-09-17] MEDS: Cefepime HCl 1 GM in D5W 55 ML IVPB SCH (09:20)
[2018-09-17] MEDS: Allopurinol 100mg Tab ORAL SCH (09:20)
[2018-09-17] MEDS: Docusate 100mg cap ORAL SCH ×2 (09:20→13:00)
[2018-09-17] MEDS: Heparin 5000 units/ml inj SUBQ SCH (09:22)
--- NOTE | 2018-09-17 09:54 | NUR ---
DISCHARGE PLANNING FAXED REFERRAL TO [facility]
--- NOTE | 2018-09-17 10:34 | NUR ---
NURSE NOTES: Left message for MD Oakley for patient discharge medications. Awaiting call back.
--- NOTE | 2018-09-17 10:57 | NUR ---
DISCHARGE PLANNED PT WILL DC TO [facility] T- FOR NURSE TO NURSE REPORT [facility] WAS PLACED ON WILL CALL
--- NOTE | 2018-09-17 11:05 | NUR ---
HAND-OFF: Report given to ZBIGNIEW Sandhu.
--- NOTE | 2018-09-17 11:52 | NUR ---
NURSE NOTES: RN gave report to Jonnie at [facility]. Jonnie informed pt would be transferred to facility mid-afternoon, returning to [place] after being admitted to [facility] on 09/12/18; admitting dx of UTI, FTI, allergy to peanuts. Jonnie informed pt is allergic to peanuts, diet is regular soft easy chew. Pt arriving back to facility with suprapubic catheter. Bilateral hip redness & right trochanter DTI. Will send med list to continue with pt. Jonnie stated a bed would be available.
[2018-09-17 12:00] VITALS: BP 126/73
[2018-09-17] MEDS ORDERED: Amikacin Rx to dose MISC ONE (12:45)
[2018-09-17] MEDS ORDERED: ALLOPURINOL100 M1 ORAL (12:46)
[2018-09-17] MEDS ORDERED: HYDRALAZINE HCL25 M2 PO (12:47)
[2018-09-17] MEDS ORDERED: REMERON15 M1 ORAL (12:48)
[2018-09-17] MEDS ORDERED: PANTOPRAZOLE SO40 MG ORAL (12:51)
[2018-09-17] MEDS ORDERED: PHOSPHA 250 NE250 M1 ORAL (12:52)
[2018-09-17] MEDS ORDERED: CEPHALEXIN500 MG ORAL (12:56)
--- NOTE | 2018-09-17 13:50 | Nephrology Progress Note ---
Assessment/Plan Problem List: (1) Renal failure (ARF), acute on chronic (2) UTI (urinary tract infection) (3) Failure to thrive (4) Severe malnutrition Assessment Acute Renal failure - On DIURETICS_ METFORMIN _ ZESTRIL prior to admission ? CKD underlying Dehydration Supra pubic cath UTI Plan k and Phos and Mag supplement as needed monitor renal parameters Antibiotics Avoid Nephrotoxics one dose Amikacin then po cephalexin Per orders diet to regular easy chew ? DC Subjective ROS Limited/Unobtainable: No Constitutional: Reports: malaise Objective Objective Last 24 Hour Vital Signs Date Time Temp Pulse Resp B/P (MAP) Pulse Ox O2 Delivery O2 Flow Rate FiO2 09/17/18 09:00 Room Air 09/17/18 08:00 98.9 93 18 128/84 (99) 96 09/17/18 04:00 97.8 88 18 123/66 (85) 100 81 09/17/18 00:00 97.8 95 18 122/91 (101) 97 81 09/16/18 21:00 Room Air 09/16/18 20:00 97.9 80 18 122/67 (85) 98 81 09/16/18 16:00 98.8 81 20 116/78 (91) 96 Intake and Output 09/16/18 09/17/18 19:00 07:00 Intake Total 680 ml Output Total 600 ml 600 ml Balance 80 ml -600 ml Intake Oral 480 ml IV Total 200 ml Output Urine Total 600 ml 600 ml Current Medications Medications (Trade) Dose Ordered Sig/Taty Route PRN Reason Start Time Stop Time Status Last Admin Dose Admin Acetaminophen (Tylenol) 500 mg Q6H PRN ORAL Mild Pain/Temp > 100.5 09/12/18 16:00 10/12/18 15:59 09/14/18 11:55 Allopurinol (Zyloprim) 100 mg DAILY ORAL 09/14/18 09:00 10/14/18 08:59 09/17/18 09:20 Amikacin Sulfate 700 mg/Sodium Chloride 112.8 ml @ 112.8 mls/ hr ONCE IV 09/17/18 14:00 09/17/18 15:00 09/17/18 13:31 Bisacodyl (Dulcolax) 10 mg DAILYPRN PRN RECTAL Constipation 09/12/18 16:00 10/12/18 15:59 Docusate Sodium (Colace) 100 mg TID ORAL 09/12/18 18:00 10/12/18 17:59 09/17/18 09:20 Heparin Sodium (Porcine) (Heparin 5000 units/ml) 5,000 units EVERY 12 HOURS SUBQ 09/12/18 21:00 10/12/18 20:59 09/17/18 09:22 Hydralazine HCl (Apresoline) 25 mg Q4H PRN ORAL bp over 160 syst 09/12/18 16:15 10/12/18 16:14 Mirtazapine (Remeron) 7.5 mg BEDTIME ORAL 09/15/18 21:00 10/15/18 20:59 09/16/18 21:44 Pantoprazole (Protonix) 40 mg EVERY 12 HOURS ORAL 09/14/18 21:00 10/14/18 20:59 09/17/18 09:20 Phosphorus (Phospha 250 Neutral) 500 mg THREE TIMES A DAY ORAL 09/15/18 13:45 10/15/18 13:44 09/17/18 09:20 Tramadol HCl (Ultram) 50 mg Q6H PRN ORAL Pain Scale (6-10) 09/12/18 16:00 09/19/18 15:59 09/16/18 02:01 Height (Feet): 5 Height (Inches): 7.00 Weight (Pounds): 100 General Appearance: no apparent distress Cardiovascular: normal rate Respiratory/Chest: lungs clear Abdomen: soft Objective no change Jesse Moya MD Sep 17, 2018 13:50
[2018-09-17] MEDS ORDERED: Amikacin 700 MG in NS 110 ML IV SCH (14:00)
--- NOTE | 2018-09-17 15:36 | Surgery Progress Note ---
Surgery Progress Note Subjective Additional Comments leukocytosis improved. overall improving. no n/v/f/c. Objective Last 24 Hour Vital Signs Date Time Temp Pulse Resp B/P (MAP) Pulse Ox O2 Delivery O2 Flow Rate FiO2 09/17/18 12:00 97.9 95 18 126/73 (90) 96 09/17/18 09:00 Room Air 09/17/18 08:00 98.9 93 18 128/84 (99) 96 09/17/18 04:00 97.8 88 18 123/66 (85) 100 81 09/17/18 00:00 97.8 95 18 122/91 (101) 97 81 09/16/18 21:00 Room Air 09/16/18 20:00 97.9 80 18 122/67 (85) 98 81 09/16/18 16:00 98.8 81 20 116/78 (91) 96 I&O Intake and Output 09/16/18 09/17/18 19:00 07:00 Intake Total 680 ml Output Total 600 ml 600 ml Balance 80 ml -600 ml Intake Oral 480 ml IV Total 200 ml Output Urine Total 600 ml 600 ml Dressing: saturated Wound: other Drains: other Cardiovascular: RSR Respiratory: clear Abdomen: soft, non-tender, present bowel sounds, non-distended Extremities: other Plan Problems: (1) Severe malnutrition Assessment & Plan: patient not taking in much oral intake malnutrition decreased appetite albumin okay skin turgor poor dehydrated renal insufficiency DAILY ESTIMATED NEEDS: Needs based on Underweight, renal, pre-dm/ DM, 46kg 30-35 kcals/kg 7472-2426 total kcals 1-1.5 g protein/kg 46-69 g total protein 25-30 mL/kg 0454-1599 total fluid mLs NUTRITION DIAGNOSIS: 1) Increased kcal and pro needs r/t underweight status as evidenced by pt is 63 % of Surveyor Body Weight w/ generalized wasting. 2) Altered nutrition related lab values r/t renal failure as evidenced by pt adm w/ elev BUN (134) elev creat (3.4), elev K, phos, on adm, now trending to WNL. CURRENT DIET: Renal PO DIET RECOMMENDATIONS: LOW NA DIET (texture as tolerated) ADDITIONAL RECOMMENDATIONS: 1) add Glucerna TID w/ meals (Add NEPRO while on Renal diet) 2) Obtain a CALIBRATED bed scale wt for accurate CBW 3) F/up w/ WC eval 4) Monitor BG/ accuchecks w/ SSI (2) Failure to thrive (3) Decubitus skin ulcer Assessment & Plan: Patient presents with multiple skin decubitus. Tx Plan: Cleanse Right Ischium with saline. Apply therahoney, then cover with Optifoam dressing daily and prn Apply Cavilon to Right Trochanter DTPI. Cover with Optifoam q7days and prn Apply Cavilon to both heels. cover heel with Optifoam dressing q7days and prn Apply Cavilon skin barrier to lateral aspect of right and left foot Apply paste to sacrum, cover with Optifoam q3days and prn Gerald Mustafa Sep 17, 2018 15:36
--- NOTE | 2018-09-17 16:12 | General Progress Note ---
Assessment/Plan Assessment/Plan Assessment and Recs: # Failure to thrive - decreased bmi and low protein --> cea is currently at 6.2 --> will also obtain q3d caloric counts --> mirtazapine 7.5mg qhs has been started --> make sure as outpatient gaining weight as per pcp # Anemia of chronic disease due to underlying chronic medical issues, multifactorial --> Anemia workup has been ordered/ordered, ferritin 465, tibc 227 --> No evidence of hemolysis is noted, peripheral smear has been reviewed. --> Hgb goal >7. Transfuse prn. --> Epogen or iron at this time is not particularly indicated --> Medications have been reviewed --> evaluate with Gi team prn # Thrombocytosis - likely related to reactive process (and/or underlying infection) --> Continue to monitor for improvement --> Trend CBC as needed --> If continues to be elevated, consider to send for AMBER-2 --> Smear reviewed and no abnormalities noted. *Under manual differential # Muscular dystrophy # Fecal impaction # Renal failure (ARF), acute on chronic --> per renal # DESTINY as per renal # Sacral decub --> appreciate surg recs The timing of this note does not necessarily reflect the time of the patient was seen. Greatly appreciate consultation! Subjective Constitutional: Denies: no symptoms, chills, diaphoresis, fever, malaise, weakness, other HEENT: Denies: no symptoms, eye pain, blurred vision, tearing, double vision, ear pain, ear discharge, nose pain, nose congestion, throat pain, throat swelling, mouth pain, mouth swelling, other Cardiovascular: Denies: no symptoms, chest pain, edema, irregular heart rate, lightheadedness, palpitations, syncope, other Respiratory: Denies: no symptoms, cough, orthopnea, shortness of breath, SOB with excertion, SOB at rest, sputum, stridor, wheezing, other Gastrointestinal/Abdominal: Denies: no symptoms, abdomen distended, abdominal pain, black stools, tarry stools, blood in stool, constipated, diarrhea, difficulty swallowing, nausea, poor appetite, poor fluid intake, rectal bleeding , vomiting, other Genitourinary: Denies: no symptoms, burning, discharge, frequency, flank pain, hematuria, incontinence, pain, urgency, other Neurologic/Psychiatric: Denies: no symptoms, anxiety, depressed, emotional problems, headache, numbness, paresthesia, pre-existing deficit, seizure, tingling, tremors, weakness, other Endocrine: Denies: no symptoms, excessive sweating, flushing, intolerance to cold, intolerance to heat, increased hunger, increased thirst, increased urine, unexplained weight gain, unexplained weight loss, other Allergies: Coded Allergies: PEANUT (Verified Allergy, Unknown, 09/12/18) Subjective 09/15: awake, alert, verbal, feeling better overall, hgb lower 10.8 09/16: anemia downtrending, ivf being given, otherwis agnieszka events 09/17: to be transffered out soon, no fevers or chills Objective Last 24 Hour Vital Signs Date Time Temp Pulse Resp B/P (MAP) Pulse Ox O2 Delivery O2 Flow Rate FiO2 09/17/18 12:00 97.9 95 18 126/73 (90) 96 09/17/18 09:00 Room Air 09/17/18 08:00 98.9 93 18 128/84 (99) 96 09/17/18 04:00 97.8 88 18 123/66 (85) 100 81 09/17/18 00:00 97.8 95 18 122/91 (101) 97 81 09/16/18 21:00 Room Air 09/16/18 20:00 97.9 80 18 122/67 (85) 98 81 Intake and Output 09/16/18 09/17/18 19:00 07:00 Intake Total 680 ml Output Total 600 ml 600 ml Balance 80 ml -600 ml Intake Oral 480 ml IV Total 200 ml Output Urine Total 600 ml 600 ml Height (Feet): 5 Height (Inches): 7.00 Weight (Pounds): 100 Objective General Appearance: no apparent distress, thin, chronically Ill Eyes: bilateral eye other - Arcus bilaterally ENT: dry mucus membranes Neck: supple Cardiovascular: rrr, no edema Gastrointestinal: soft, no guarding, no rebound, tenderness - LLQ , less bowel sounds Genitourinary: no CVA tenderness, other - rai Musculoskeletal: other - atrophy bilateral legs with weakness, + contractures Neurologic: responsive, sensory intact, motor weakness - LE, oriented - X2 Psychiatric: depressed affect Reflexes: 1+ knee (R), 1+ knee (L) Skin: other - poor turgor, bilateral sacral decubitis - Stage 3 Samuel Salazar MD Sep 17, 2018 16:12
[2018-09-17] MEDS ORDERED: Tubing IV Secondary IV ONE (16:25)
--- NOTE | 2018-09-17 16:28 | NUR ---
NURSE NOTES: Patient discharged per doctor order, IV removed, belongings checked, no discrepancies, transferred via ambulance back to SNF, no distress noted.
--- NOTE | 2018-09-21 13:19 | Discharge Summary ---
Discharge Summary Discharge Summary _ DATE OF ADMISSION: 09/12/2018 DATE OF DISCHARGE: 09/17/2018 DISCHARGED BY: Dr. Oni Oakley CONSULTANTS: Dr. Jesse Salazar BRIEF HOSPITAL COURSE: Patient is a 68-year-old male, who is a resident of an extended care facility where he has been in relatively stable condition over the past 2 months. He was admitted 2 months prior due to same condition, mainly because of lower abdominal pain. Patient apparently had too many [place]'s. Patient is bedbound due to paralysis of his legs. 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 On evaluation at ED, vital signs were stable. Blood work showed leukocytosis, WBC was elevated to 15, hemoglobin 12, hematocrit 38. BUN was 134 creatinine was 3.4. Lactic acid 1.10. Urinalysis showed 3+ protein, 1+ ketone, 5+ blood, positive nitrite, 30-40 RBC, 60-80 WBC. EKG showed normal sinus rhythm with no acute changes. Chest x-ray with no acute disease. KUB paucity of gas bubbles and large amount of stool throughout the colon. He was admitted for evaluation of UTI failure to thrive, renal failure and fecal impaction. Kidney function was monitored. Patient has history of urinary retention and BPH. Patient came in with acute renal failure and was on diuretics, metformin and Zestril prior to admission. He was given IV hydration. Renal parameters were monitored. He was started on IV cefepime for UTI. He was given bowel regimen. Surgery was consulted. Patient came in with multiple wounds upon admission. Patient has failure to thrive and severe malnutrition. He was noted to have pressure ulcer on the right ischium, right trochanter and both heels. He was recommended wound care. Recommended to optimize nutritional support to help with wound healing. He was eventually started on Remeron. Anemia workup showed anemia of chronic disease. Epogen and iron not indicated. He had thrombocytosis, likely related to reactive process there were no abnormalities seen under manual differential smear review. Urine culture showed growth of Pseudomonas and E. coli sensitive to amikacin. Abdominal ultrasound showed a Webster catheter well-situated in the bladder lumen there was no hydronephrosis. There was a nonobstructive stone in the left kidney. CT of the abdomen and pelvis without contrast showed multiple nonobstructive stones in the left kidney. Symptoms resolved, kidney stones or floating and without obstruction. He was eventually discharged back to extended care facility with the same medication. FINAL DIAGNOSES: Urinary tract infection with Pseudomonas and E. 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 DISCHARGE MEDICATIONS: Refer to Discharge Medication List. I have been assigned to complete a discharge summary on this account, I was not involved with the patient's management. Jayashree Lazar NP Sep 21, 2018 13:19
== END 2018-09-17 16:26 | DRG 682 ==
LOC: EDBD 10:36 → EMR 11:30 → 4E 11:42 → EDBEDREQ 13:25 → 4E 14:53
DX: N17.9 Acute kidney failure, unspecified (principal); E43 Unspecified severe protein-calorie malnutrition; N39.0 Urinary tract infection, site not specified; Z68.1 Body mass index [BMI] 19.9 or less, adult; L89.159 Pressure ulcer of sacral region, unspecified stage; B96.20 Unspecified Escherichia coli [E. coli] as the cause of diseases classified elsewhere; B96.5 Pseudomonas (aeruginosa) (mallei) (pseudomallei) as the cause of diseases classified elsewhere; N18.9 Chronic kidney disease, unspecified; R62.7 Adult failure to thrive; G71.00 Muscular dystrophy, unspecified; D63.8 Anemia in other chronic diseases classified elsewhere; D47.3 Essential (hemorrhagic) thrombocythemia; L89.90 Pressure ulcer of unspecified site, unspecified stage; K56.41 Fecal impaction; N40.1 Benign prostatic hyperplasia with lower urinary tract symptoms; R33.8 Other retention of urine; I12.9 Hypertensive chronic kidney disease with stage 1 through stage 4 chronic kidney disease, or unspecified chronic kidney disease; E11.22 Type 2 diabetes mellitus with diabetic chronic kidney disease; E86.0 Dehydration; K21.9 Gastro-esophageal reflux disease without esophagitis; Z79.84 Long term (current) use of oral hypoglycemic drugs; Z43.5 Encounter for attention to cystostomy
CPT/HCPCS: 36415; 71045; 74018; 74176; 76700; 80048; 80053; 80061; 80202; 81001; 81003; 81050; 82140; 82378; 82550; 82607; 82728; 82746; 82977; 83036; 83540; 83550; 83605; 83690; 83735; 83880; 84100; 84165; 84443; 84484; 84550; 85007; 85025; 85610; 85651; 85730; 86140; 87081; 87086; 87181; 93005; 96361; 96365; 99285; C9399; J8499